=== PATIENT | female | born 1975 | race Caucasian/White ===

== ENCOUNTER 2020-06-08 11:23 | Inpatient (IN) | payer SELFPAY ==
[2020-06-08] VITALS (22 sets, daily range): BP systolic 116–153; BP diastolic 59–99; PULSE 84–116; RESP 12–42; TEMP 36.5–36.7; O2SAT 91–99; BMI 33.4; BMI 36.8
--- NOTE | 2020-06-08 12:43 | DI.US.S_ITS ---
PROCEDURE: US PELVIC COMPLETE INDICATIONS: suprapubic cramping pain, IUD remaining for 20 yrs TECHNIQUE: Real-time scanning was performed of the pelvic organs, with image documentation. Additional endovaginal scanning was necessary due to incomplete visualization of the adnexal and endometrial structures by transabdominal scanning. COMPARISON: None. FINDINGS: Transabdominal scanning: Limited scanning through the kidneys shows no hydronephrosis. No pathologic free abdominal or pelvic fluid. Endovaginal scanning: Uterus: Uterus is normal in size at 5.4 x 4.1 x 9.1 cm. The endometrium is not well visualized due to patient body habitus.. Note is made of a IUD within the right lower uterine segment. This may be penetrating the myometrial wall. Ovaries: Not visualized. A small amount of mildly complex free fluid is seen at the left adnexa. IMPRESSION: Anteverted uterus, normal in size, but quality of visualization of the endometrial lining is very limited due to body habitus. Lower uterine segment positioning of a partially visualized IUD which may partially penetrate the right myometrium. A small amount of mildly complex free fluid is seen within the right adnexa. The ovaries could not be seen bilaterally. Depending on the clinical status follow-up by pelvic MR scanning may be warranted for more thorough evaluation. Dictated by: Ezequiel Tuttle M.D. on 06/08/2020 at 15:29 Approved by: Ezequiel Tuttle M.D. on 06/08/2020 at 15:35
[2020-06-08] MEDS: SODIUM CHLORIDE 0.9% 1,000 ML 999 ML IV (13:03)
[2020-06-08] MEDS: KETOROLAC 60 MG/2 ML VIAL 15 MG IV (13:03)
[2020-06-08] MEDS: ONDANSETRON 4 MG/2 ML INJ IV (13:03)
[2020-06-08 13:06] LABS: Alanine Aminotransferase 52 IU/L (<35); Albumin 3.4 g/dL (3.5-5.0); Albumin Globulin Ratio 0.9 (1.0-2.8); Alkaline Phosphatase 163 U/L (38-126); Aspartate Aminotransferase 84 IU/L (14-36); BUN Creatinine Ratio 8.8 (6-22); Bilirubin Total 1.2 mg/dL (0.2-1.3); Blood Urea Nitrogen 3 mg/dL (7-17); Calcium 8.5 mg/dL (8.4-10.2); Chloride 90 mmol/L (98-107); Estimated Glomerular Filt Rate > 60.0 mL/min (>60); Globulin 3.7 g/dL (1.7-4.1); Glucose 104 mg/dL (70-100); HEMOLYSIS < 15 (0-50); Lactate (Lactic Acid) 2.8 mmol/L (0.7-2.1); Sodium 134 mmol/L (137-145); Total Protein 7.1 g/dL (6.3-8.2)
[2020-06-08 13:08] LABS: Add Manual Diff / Slide Review NO; Basophils Absolute Auto 100 /uL (0-100); Basophils Percent Auto 0.4 % (0-2); Eosinophils Absolute Auto 0 /uL (0-450); Eosinophils Percent Auto 0.1 % (2-4); Hematocrit 35.6 % (36-46); Hemoglobin 12.3 g/dL (12.0-16.0); Lymphocytes Absolute Auto 900 /uL (1100-4500); Lymphocytes Percent Auto 5.3 % (25-40); Mean Corpuscular HGB Conc 34.6 % (30-36); Mean Corpuscular Hemoglobin 35.9 PG (26-34); Mean Corpuscular Volume 103.5 fL (80-100); Monocytes Absolute Auto 900 /uL (0-900); Monocytes Percent Auto 5.2 % (3-14); Neutrophils Absolute Auto 15800 /uL (1500-7000); Platelet Count 242 X10^3/uL (150-400); Red Blood Cell Count 3.44 X10^6/uL (4.0-5.2); Red Cell Distribution Width 17.5 % (11.6-14.8); White Blood Cell Count 17.7 X10^3/uL (4.5-11.0)
[2020-06-08 13:12] LABS: Carbon Dioxide 38 mmol/L (22-32)
[2020-06-08 13:15] LABS: Appearance Urine UA CLOUDY; Bilirubin Urine UA 1+ (NEGATIVE); Color Urine UA ORANGE; Glucose Urine UA TRACE g/dL (Negative); Ketones Urine UA NEGATIVE (NEGATIVE); Leukocyte Esterase Urine UA 1+ (NEGATIVE); Nitrite Urine UA POSITIVE (Negative); Occult Blood Urine UA 3+ (Negative); Protein Urine UA 1+ (Negative)
[2020-06-08 13:18] LABS: pH Urine UA 7.5 (4.5-8.0)
[2020-06-08 13:20] LABS: Ictotest Urine Positive (Negative)
[2020-06-08 13:21] LABS: RBC Urine >100/HPF (0-5/HPF); Squamous Epithelial Cell Urine >30 /HPF (0-5/HPF); WBC Urine 30-100/HPF (0-5/HPF)
[2020-06-08 13:22] LABS: Bacteria Urine Many (>30); Culture Indicated Urine Cult Not Indicated
--- NOTE | 2020-06-08 13:26 | ED_ITS ---
HPI - Female Genitourinary <DEMETRIUS Bonner - Last Filed: 06/09/20 00:55> General Chief complaint: Urogenital-Female Stated complaint: pelvic pain/iud/9/10pain x4 days Time Seen by Provider: 06/08/20 12:08 Source: patient Mode of arrival: Ambulatory Limitations: no limitations History of Present Illness HPI Narrative: A 45 year female, smoker, with no contributory medical history pr esents to ED with significant other with chief complain of cramping suprapubic discomfort which radiates to back for last 4 days. LMP yesterday. Patient reports cramping pain is so severe can't move and has to stop to breathe through with the pain. Patient rates pain as 8/10 and in shooting and pressure like and worsens with certain movements and during urination and movements. Patient reports dark and odorous urine but denies frequency, urgency, dysuria, or hematuria. Patient reports she has history of constipation and denies diarrhea. Patient takes daily stool softener and laxatives. Patient reports she has IUD in place 20 years ago this has not been removed due to not having medical insurance. Patient reports last several months her period has been irregular. Patient denies unusual vaginal discharge. Patient reports associated symptoms as nausea and on and off vomiting last few days and reports decreased p.o. intake. Patient denies fever or chills, chest pain, short of breath, lightheadedness. Patient denies history of fibroids or ovarian cyst. Related Data Allergies Allergy/AdvReac Type Severity Reaction Status Date / Time No Known Drug Allergies Allergy Verified 06/08/20 11:39 Review of Systems <DEMETRIUS Bonner - Last Filed: 06/09/20 00:55> Review of Systems Narrative: General: Denies fever, chills, fatigue, malaise, sweats. HEENT: Denies sinus pain, ear pain, sore throat, difficulty swallowing, dizziness. Respiratory: Denies dyspnea, cough, wheezing, hemoptysis, sputum. Cardiovascular: Denies chest pain, palpitations, orthopnea, edema. Gastrointestinal: See HPI : See HP Musculoskeletal: Denies weakness, joint pain or bony pain, (+) back pain. Skin: Denies rash, skin lesions, or other. Neurologic: Denies weakness, headache, numbness, change in speech, confusion, seizures, incoordination. Psychiatric: No concerning psychosocial issues. 12-point review of systems is negative except for those stated above. Patient History <DEMETRIUS Bonner - Last Filed: 06/09/20 00:55> Medical History Constipation (Acute) Surgical History History of (Acute) Smoking Status: Current every day smoker alcohol intake frequency: 3 or more drinks per day Substance Use Type: marijuana Exam <DEMETRIUS Bonner - Last Filed: 06/09/20 00:55> Narrative Exam Narrative: GEN: Alert, oriented x 3, well nourished, and in no acute distress. Head: Normal cephalic, atraumatic. No scalp or temporal tenderness, palpable mass or rash. EYES: Pupils are equal, round, and reactive to light and accommodation. E xtraocular muscles are intact bilaterally. There is no subconjunctival hemorrhage, exudate and sclera non-icteric. ENT: Hearing grossly intact. Nose without bleeding, purulent discharge or deviation. Mucous membrane dry, no mucosal lesion. Throat without erythema, tonsillar hypertrophy or exudate. Uvula in midline, airway patent. Neck: Trachea in midline. No JVD, non-tender without lymphadenopathy. No masses or thyroid megaly. Supple, non-tender and no meningeal signs. CARDIAC: Normal regular rate and rhythm without murmurs, gallops, or rubs. No chest wall tenderness. No peripheral edema, cyanosis or pallor. Capillary refill is less than 2 seconds. RESPIRATORY: Lungs are clear to auscultate bilaterally. No cough, wheezes, rales, or rhonchi. No stridor, respiratory distress, increase work of breathing, or accessary muscle used. ABD: Abdomen soft and non-distended. Bilateral low abdomen and suprapubic discomfort to palpate. No guarding or rebound tenderness to palpate. Bowel sounds are normal in all 4 quadrants. There is no palpable masses or organomegaly. EXT: Full painless ROM of all extremities with no loss of sensation, strength, effusion or edema. SKIN: Warm, dry, normal color for patient. No erythema, lesions or rash over visible areas. BACK: Nontender without deformity or crepitance. No flank tenderness. NEUROLOGICAL: Alert and oriented to place, time and person. Sensation and motor function intact bilaterally. No facial droops, dysphasia. PSYCHIATRIC: Good judgement and reason, without hallucinations, abnormal affect or abnormal behaviors during the examination. Patient is not suicidal. Initial Vital Signs Initial Vital Signs: Vital Signs Temperature 98.0 F 06/08/20 11:35 Pulse Rate 116 H 06/08/20 11:35 Respiratory Rate 06/08/20 11:35 Blood Pressure 138/98 H 06/08/20 11:35 Pulse Oximetry 95 06/08/20 11:35 Speculum Exam - Vagina: normal appearance of the vagina, vaginal bleeding, no masses and nontender Speculum Exam - Cervix: other (No string visualized) Bimanual Exam- Vagina & Uterus: no cervical motion tenderness Bimanual Exam- Adnexa, other: tender on the left and mass fixed OB/External & Speculum: vaginal bleeding Other: MERT [facility]right sap specialist during pelvic exam. <Viv Morales DO - Last Filed: 06/09/20 07:57> Initial Vital Signs Initial Vital Signs: Vital Signs Temperature 98.0 F 06/08/20 11:35 Pulse Rate 116 H 06/08/20 11:35 Respiratory Rate 06/08/20 11:35 Blood Pressure 138/98 H 06/08/20 11:35 Pulse Oximetry 95 06/08/20 11:35 Scores <DEMETRIUS Bonner - Last Filed: 06/09/20 00:55> GCS Bao coma scale eye opening: Spontaneous [place] coma scale verbal response: Orientated Bao coma scale motor response: Obey commands Bao coma scale total score: 15 qSOFA Altered Mental Status (GCS <15): No Respiratory rate greater than/equal to 22: No Systolic blood pressure less than or equal to 100: No qSOFA Total: 0 0-1 Not High Risk 1-3 High risk Course <DEMETRIUS Bonner - Last Filed: 06/09/20 00:55> Orders Ordered: Gentamicin Sulfate (Garamycin Trough) 1 [place] [facility] [place] Stop: 06/09/20 09:01 Hydromorphone HCl (Dilaudid) 1 mg IV Q4HR PRN PRN Reason: Pain, Severe (7-10) Last Admin: 06/09/20 07:05 Dose: 1 mg Documented by: Admin: 06/09/20 02:15 Dose: 1 mg Documented by: Admin: 06/08/20 22:15 Dose: 1 mg Documented by: SUSAN Clindamycin Phosphate (Cleocin) 900 mg in 50 mls @ 50 mls/hr IV Q8H [facility] Last Admin: 06/09/20 02:47 Dose: 50 mls/hr Documented by: DWAYNE Sodium Chloride (Normal Saline 0.9%) 1,000 mls @ 100 mls/hr IV CONT [facility] Last Admin: 06/08/20 22:14 Dose: 100 mls/hr Documented by: SUSAN Gentamicin Sulfate 450 mg/ (Sodium Chloride) 111.25 mls @ 111.25 mls/hr IV Q24H [facility] Last Admin: 06/08/20 23:57 Dose: 111.25 mls/hr Documented by: DWAYNE Potassium Chloride 40 meq/ (Sodium Chloride) 520 mls @ 130 mls/hr IV NOW ONE Stop: 06/09/20 11:22 Ketorolac Tromethamine (Toradol) 30 mg IV Q6H PRN PRN Reason: Pain, Moderate (4-6) Last Admin: 06/08/20 22:14 Dose: 30 mg Documented by: SUSAN Naloxone HCl (Narcan) 0.2 mg IV Q2MIN PRN PRN Reason: Opiate Reversal Ondansetron HCl (Zofran) 4 mg IV Q6HR PRN PRN Reason: Nausea And Vomiting Oxycodone/Acetaminophen (Percocet 5/325) 2 tab PO Q4HR PRN PRN Reason: Pain, Severe (7-10) Discontinued Medications Docusate Sodium (Colace) 250 mg PO BID [facility] Last Admin: 06/08/20 22:17 Dose: 250 mg Documented by: SUSAN Gentamicin Sulfate (Garamycin Per Pharmacy) 1 request MISC NOW ONE Stop: 06/08/20 21:17 Last Admin: 06/09/20 03:25 Dose: Not Given Documented by: DWAYNE Gentamicin Sulfate (Garamycin Peak) 1 request MISC NOW ONE Stop: 06/08/20 22:46 Hydromorphone HCl (Dilaudid) 0.5 mg IV NOW ONE Stop: 06/08/20 14:03 Last Admin: 06/08/20 14:15 Dose: 0.5 mg Documented by: ELEANOR Hydromorphone HCl (Dilaudid) 0.5 mg IV NOW ONE Stop: 06/08/20 18:11 Last Admin: 06/08/20 18:26 Dose: 0.5 mg Documented by: ELEANOR Sodium Chloride (Normal Saline 0.9%) 1,000 mls @ 999 mls/hr IV CONT SHARONA Last Infusion: 06/08/20 14:23 Dose: 0 mls/hr Documented by: Admin: 06/08/20 13:03 Dose: 999 mls/hr Documented by: EELANOR Potassium Chloride 40 meq/ (Sodium Chloride) 520 mls @ 130 mls/hr IV NOW ONE Stop: 06/08/20 17:21 Last Infusion: 06/08/20 18:03 Dose: 0 mls/hr Documented by: ELEANOR Cosigned by: ROGELIO Admin: 06/08/20 13:37 Dose: 130 mls/hr Documented by: HARSH Cosigned by: ELEANOR Sodium Chloride (Normal Saline 0.9%) 1,000 mls @ 1,000 mls/hr IV BOLUS ONE Stop: 06/08/20 14:22 Last Infusion: 06/08/20 15:39 Dose: 0 mls/hr Documented by: Admin: 06/08/20 14:06 Dose: 1,000 mls/hr Documented by: ELEANOR Ceftriaxone Sodium/Dextrose (Rocephin) 1 gm in 50 mls @ 100 mls/hr IV NOW ONE Stop: 06/08/20 13:55 Last Infusion: 06/08/20 15:03 Dose: 0 mls/hr Documented by: Admin: 06/08/20 14:06 Dose: 100 mls/hr Documented by: ELEANOR Clindamycin Phosphate (Cleocin) 900 mg in 50 mls @ 50 mls/hr IV NOW ONE Stop: 06/08/20 18:42 Last Admin: 06/08/20 18:26 Dose: 50 mls/hr Documented by: ELEANOR Sodium Chloride (Normal Saline 0.9%) 1,000 mls @ 125 mls/hr IV CONT SHARONA Last Admin: 06/08/20 22:16 Dose: Not Given Documented by: SUSAN Potassium Chloride 40 meq/ (Sodium Chloride) 520 mls @ 130 mls/hr IV NOW ONE Stop: 06/08/20 22:32 Last Admin: 06/08/20 20:26 Dose: 130 mls/hr Documented by: ARIA Cosigned by: ROCIO Gentamicin Sulfate 220 mg/ (Sodium Chloride) 105.5 mls @ 105.5 mls/hr IV NOW ONE Stop: 06/08/20 21:17 Last Admin: 06/08/20 22:44 Dose: Not Given Documented by: ARIA Ketorolac Tromethamine (Toradol) 15 mg IV NOW ONE Stop: 06/08/20 12:43 Last Admin: 06/08/20 13:03 Dose: 15 mg Documented by: ELEANOR Ondansetron HCl (Zofran) 4 mg IV NOW ONE Stop: 06/08/20 12:43 Last Admin: 06/08/20 13:03 Dose: 4 mg Documented by: ELEANOR Potassium Chloride (Potassium Chloride) 40 meq PO NOW ONE Stop: 06/08/20 16:22 Last Admin: 06/08/20 16:57 Dose: 40 meq Documented by: ELEANOR Potassium Chloride (Potassium Chloride) 40 meq PO NOW ONE Stop: 06/09/20 07:25 Reevaluation(s) Reevaluation #1: Patient reports pain has not improved much after Toradol. Informed patient on blood test results and waiting for ultrasound test results. Ordering Dilaudid for pain. Time: 14:02 Reevaluation #2: Contacted US department for update and results on US pelvic exam. Informed that it is being read by RAD at this time. Time: 15:06 Reevaluation #3: Repeat Lactate 2.3. Improved HR at 88 bmp and normal tensive. Additional Reevaluation(s): 4412-Dr. Herring (RAD) called to inform CT findings on left adenexa abscess and IUD findings that was seen by US. Consultations Consultation #1: consulted Dr. Grey with US finding. She recommended pelvic exam and will try to remove IUD at the office and if this fails then the patient requires IUD removal at the OR. Dr. Grey does not recommend CT at this time. Will speak with Dr. Lazaro for admission for hypokalemia and SIRS with elevated lactate in 2 series with leukocytosis possibly from pylonephritis or intra- abdominal disease. Time: 16:01 Consultation #2: Dr. Santacruz recommended CT test of abdomen and pelvis with contrast, repeat clean-catch urine test and to call back with the results. Time: 16:20 Consultation #3: 1745-Dr. Lazaro informed with the CT result. He recommended consulting Dr. Grey ([facility]) for admission. Dr. Grey contacted with CT findings. She recommended for IV abx medication coverage with clindamycin 900 mg for possible left ovarian abscess. Found out there is no available inpatient bed at this time and discussed with Dr. Grey will contact other Hospitals for admission/transfer. Appreciate her time and consult. 1750-I was informed that there maybe a bed available in a short period and waiting a phone call from executive housekeeper. Repeat BMP and lactate at this time. 180-I was informed that there is a bed available in short. I will contact Dr. Grey once again with the information above and repeat lactate and BMP result. 1840-Dr. Grey kindly accepted patient's care for possible left ovarian abscess and mess, hypokalemia, UTI, and meeting sepsis criteria. Lactate has increased to 2.5 (#3) from 2.3 (#2) and K is upto now 2.8. Additional 40 mEq of K rider has been ordered. Vital Signs Vital signs: Vital Signs - 8 hr 06/08/20 16:46 06/08/20 16:47 06/08/20 17:00 Pulse Rate 93 H 90 Respiratory Rate 21 Blood Pressure 128/78 133/81 Pulse Oximetry 91 99 97 06/08/20 17:30 06/08/20 18:00 06/08/20 18:01 Pulse Rate 89 90 89 Respiratory Rate 17 22 19 Blood Pressure 141/99 H 127/76 Pulse Oximetry 97 96 96 06/08/20 18:30 06/08/20 18:31 Pulse Rate 88 89 Respiratory Rate 24 21 Blood Pressure 116/59 L Pulse Oximetry 94 95 <Viv Morales, DO - Last Filed: 06/09/20 07:57> Orders Ordered: Gentamicin Sulfate (Garamycin Trough) 1 [place] [facility] [place] Stop: 06/09/20 09:01 Hydromorphone HCl (Dilaudid) 1 mg IV Q4HR PRN PRN Reason: Pain, Severe (7-10) Last Admin: 06/09/20 07:05 Dose: 1 mg Documented by: Admin: 06/09/20 02:15 Dose: 1 mg Documented by: Admin: 06/08/20 22:15 Dose: 1 mg Documented by: SUSAN Clindamycin Phosphate (Cleocin) 900 mg in 50 mls @ 50 mls/hr IV Q8H [facility] Last Admin: 06/09/20 02:47 Dose: 50 mls/hr Documented by: DWAYNE Sodium Chloride (Normal Saline 0.9%) 1,000 mls @ 100 mls/hr IV CONT [facility] Last Admin: 06/08/20 22:14 Dose: 100 mls/hr Documented by: SUSAN Gentamicin Sulfate 450 mg/ (Sodium Chloride) 111.25 mls @ 111.25 mls/hr IV Q24H [facility] Last Admin: 06/08/20 23:57 Dose: 111.25 mls/hr Documented by: DWAYNE Potassium Chloride 40 meq/ (Sodium Chloride) 520 mls @ 130 mls/hr IV NOW ONE Stop: 06/09/20 11:22 Ketorolac Tromethamine (Toradol) 30 mg IV Q6H PRN PRN Reason: Pain, Moderate (4-6) Last Admin: 06/08/20 22:14 Dose: 30 mg Documented by: SUSAN Naloxone HCl (Narcan) 0.2 mg IV Q2MIN PRN PRN Reason: Opiate Reversal Ondansetron HCl (Zofran) 4 mg IV Q6HR PRN PRN Reason: Nausea And Vomiting Oxycodone/Acetaminophen (Percocet 5/325) 2 tab PO Q4HR PRN PRN Reason: Pain, Severe (7-10) Discontinued Medications Docusate Sodium (Colace) 250 mg PO BID [facility] Last Admin: 06/08/20 22:17 Dose: 250 mg Documented by: SUSAN Gentamicin Sulfate (Garamycin Per Pharmacy) 1 request MISC NOW ONE Stop: 06/08/20 21:17 Last Admin: 06/09/20 03:25 Dose: Not Given Documented by: DWAYNE Gentamicin Sulfate (Garamycin Peak) 1 request MISC NOW ONE Stop: 06/08/20 22:46 Hydromorphone HCl (Dilaudid) 0.5 mg IV NOW ONE Stop: 06/08/20 14:03 Last Admin: 06/08/20 14:15 Dose: 0.5 mg Documented by: ELEANOR Hydromorphone HCl (Dilaudid) 0.5 mg IV NOW ONE Stop: 06/08/20 18:11 Last Admin: 06/08/20 18:26 Dose: 0.5 mg Documented by: ELEANOR Sodium Chloride (Normal Saline 0.9%) 1,000 mls @ 999 mls/hr IV CONT SHARONA Last Infusion: 06/08/20 14:23 Dose: 0 mls/hr Documented by: Admin: 06/08/20 13:03 Dose: 999 mls/hr Documented by: ELEANOR Potassium Chloride 40 meq/ (Sodium Chloride) 520 mls @ 130 mls/hr IV NOW ONE Stop: 06/08/20 17:21 Last Infusion: 06/08/20 18:03 Dose: 0 mls/hr Documented by: ELEANOR Cosigned by: ROGELIO Admin: 06/08/20 13:37 Dose: 130 mls/hr Documented by: HARSH Cosigned by: ELEANOR Sodium Chloride (Normal Saline 0.9%) 1,000 mls @ 1,000 mls/hr IV BOLUS ONE Stop: 06/08/20 14:22 Last Infusion: 06/08/20 15:39 Dose: 0 mls/hr Documented by: Admin: 06/08/20 14:06 Dose: 1,000 mls/hr Documented by: ELEANOR Ceftriaxone Sodium/Dextrose (Rocephin) 1 gm in 50 mls @ 100 mls/hr IV NOW ONE Stop: 06/08/20 13:55 Last Infusion: 06/08/20 15:03 Dose: 0 mls/hr Documented by: Admin: 06/08/20 14:06 Dose: 100 mls/hr Documented by: ELEANOR Clindamycin Phosphate (Cleocin) 900 mg in 50 mls @ 50 mls/hr IV NOW ONE Stop: 06/08/20 18:42 Last Admin: 06/08/20 18:26 Dose: 50 mls/hr Documented by: ELEANOR Sodium Chloride (Normal Saline 0.9%) 1,000 mls @ 125 mls/hr IV CONT SHARONA Last Admin: 06/08/20 22:16 Dose: Not Given Documented by: SUSAN Potassium Chloride 40 meq/ (Sodium Chloride) 520 mls @ 130 mls/hr IV NOW ONE Stop: 06/08/20 22:32 Last Admin: 06/08/20 20:26 Dose: 130 mls/hr Documented by: ARIA Navarroigned by: ROCIO Gentamicin Sulfate 220 mg/ (Sodium Chloride) 105.5 mls @ 105.5 mls/hr IV NOW ONE Stop: 06/08/20 21:17 Last Admin: 06/08/20 22:44 Dose: Not Given Documented by: ARIA Ketorolac Tromethamine (Toradol) 15 mg IV NOW ONE Stop: 06/08/20 12:43 Last Admin: 06/08/20 13:03 Dose: 15 mg Documented by: ELEANOR Ondansetron HCl (Zofran) 4 mg IV NOW ONE Stop: 06/08/20 12:43 Last Admin: 06/08/20 13:03 Dose: 4 mg Documented by: ELEANOR Potassium Chloride (Potassium Chloride) 40 meq PO NOW ONE Stop: 06/08/20 16:22 Last Admin: 06/08/20 16:57 Dose: 40 meq Documented by: ELEANOR Potassium Chloride (Potassium Chloride) 40 meq PO NOW ONE Stop: 06/09/20 07:25 Vital Signs Vital signs: Vital Signs - 8 hr 06/08/20 16:46 06/08/20 16:47 06/08/20 17:00 Pulse Rate 93 H 90 Respiratory Rate 21 Blood Pressure 128/78 133/81 Pulse Oximetry 91 99 97 06/08/20 17:30 06/08/20 18:00 06/08/20 18:01 Pulse Rate 89 90 89 Respiratory Rate 17 22 19 Blood Pressure 141/99 H 127/76 Pulse Oximetry 97 96 96 06/08/20 18:30 06/08/20 18:31 Pulse Rate 88 89 Respiratory Rate 24 21 Blood Pressure 116/59 L Pulse Oximetry 94 95 MDM - Female Genitourinary <DEMETRIUS Bonner - Last Filed: 06/09/20 00:55> Differential Diagnosis Differential diagnosis: Likely urinary tract infection, ruptured ovarian cyst and other (Pyelonephritis, PID, urine fibroids) Medical Records Attestation: I reviewed the patient's medical records. Lab Data Attestation: I reviewed the patient's lab results. Result diagrams: 06/09/20 04:05 06/09/20 04:05 Labs: Lab Results 06/08/20 06/08/20 06/08/20 Range/Units 12:50 12:50 12:50 WBC 17.7 H (4.5-11.0) X10^3/uL RBC 3.44 L (4.0-5.2) X10^6/uL Hgb 12.3 (12.0-16.0) g/dL Hct 35.6 L (36-46) % MCV 103.5 H (80-100) fL MCH 35.9 H (26-34) PG MCHC 34.6 (30-36) % RDW 17.5 H (11.6-14.8) % Plt Count 242 (150-400) X10^3/uL Neut % (Auto) 89.0 H (50-75) % Lymph % (Auto) 5.3 L (25-40) % Potter % (Auto) 5.2 (3-14) % Eos % (Auto) 0.1 L (2-4) % Baso % (Auto) 0.4 (0-2) % Neut # (Auto) 85350 H (1170-2563) /uL Lymph # (Auto) 900 L (9659-6262) /uL Potter # (Auto) 900 (0-900) /uL Eos # (Auto) 0 (0-450) /uL Baso # (Auto) 100 (0-100) /uL Sodium 134 L (137-145) mmol/L Potassium 2.0 L* (3.4-5.1) mmol/L Chloride 90 L (98-107) mmol/L Carbon Dioxide 38 H (22-32) mmol/L BUN 3 L (7-17) mg/dL Creatinine 0.34 L (0.52-1.04) mg/dL Estimated GFR > 60.0 (>60) mL/min BUN/Creatinine Ratio 8.8 (6-22) Glucose 104 H (70-100) mg/dL Lactate 2.8 H (0.7-2.1) mmol/L Calcium 8.5 (8.4-10.2) mg/dL Magnesium (1.6-2.3) mg/dL Total Bilirubin 1.2 (0.2-1.3) mg/dL AST 84 H (14-36) IU/L ALT 52 H (<35) IU/L Alkaline Phosphatase 163 H (38-126) U/L Total Protein 7.1 (6.3-8.2) g/dL Albumin 3.4 L (3.5-5.0) g/dL Globulin 3.7 (1.7-4.1) g/dL Albumin/Globulin Ratio 0.9 L (1.0-2.8) Urine Color Urine Appearance Urine pH (4.5-8.0) Ur Specific [place] (1.000-1.035) Urine Protein (Negative) Urine Glucose (UA) (Negative) g/dL Urine Ketones (NEGATIVE) Urine Occult Blood (Negative) Urine Nitrate (Negative) Urine Bilirubin (NEGATIVE) Ur Bilirubin Confirm (Negative) Urine Urobilinogen (0.2) E.U./dL Ur Leukocyte Esterase (NEGATIVE) Urine RBC (0-5/HPF) Urine WBC (0-5/HPF) Ur Squamous Epith Cells (0-5/HPF) Amorphous Sediment Urine Bacteria (None) Urine Mucus (Negative) Ur Culture Indicated? Urine Test (Negative) COVID-19 PCR (Negative) 06/08/20 06/08/20 06/08/20 Range/Units 13:09 13:09 15:06 WBC (4.5-11.0) X10^3/uL RBC (4.0-5.2) X10^6/uL Hgb (12.0-16.0) g/dL Hct (36-46) % MCV (80-100) fL MCH (26-34) PG MCHC (30-36) % RDW (11.6-14.8) % Plt Count (150-400) X10^3/uL Neut % (Auto) (50-75) % Lymph % (Auto) (25-40) % Potter % (Auto) (3-14) % Eos % (Auto) (2-4) % Baso % (Auto) (0-2) % Neut # (Auto) (7192-7816) /uL Lymph # (Auto) (0630-8899) /uL Potter # (Auto) (0-900) /uL Eos # (Auto) (0-450) /uL Baso # (Auto) (0-100) /uL Sodium (137-145) mmol/L Potassium (3.4-5.1) mmol/L Chloride (98-107) mmol/L Carbon Dioxide (22-32) mmol/L BUN (7-17) mg/dL Creatinine (0.52-1.04) mg/dL Estimated GFR (>60) mL/min BUN/Creatinine Ratio (6-22) Glucose (70-100) mg/dL Lactate 2.3 H (0.7-2.1) mmol/L Calcium (8.4-10.2) mg/dL Magnesium (1.6-2.3) mg/dL Total Bilirubin (0.2-1.3) mg/dL AST (14-36) IU/L ALT (<35) IU/L Alkaline Phosphatase (38-126) U/L Total Protein (6.3-8.2) g/dL Albumin (3.5-5.0) g/dL Globulin (1.7-4.1) g/dL Albumin/Globulin Ratio (1.0-2.8) Urine Color [place] Urine Appearance Cloudy Urine pH 7.5 (4.5-8.0) Ur Specific [place] 1.010 (1.000-1.035) Urine Protein 1+ H (Negative) Urine Glucose (UA) Trace H (Negative) g/dL Urine Ketones Negative (NEGATIVE) Urine Occult Blood 3+ H (Negative) Urine Nitrate Positive H (Negative) Urine Bilirubin 1+ H (NEGATIVE) Ur Bilirubin Confirm Positive H (Negative) Urine Urobilinogen 4.0 H (0.2) E.U./dL Ur Leukocyte Esterase 1+ H (NEGATIVE) Urine RBC >100/hpf H (0-5/HPF) Urine WBC 30-100/hpf H (0-5/HPF) Ur Squamous Epith Cells >30 /hpf H (0-5/HPF) Amorphous Sediment Urine Bacteria Many (>30) H (None) Urine Mucus (Negative) Ur Culture Indicated? Cult not indicated Urine Test Negative (Negative) COVID-19 PCR (Negative) 06/08/20 06/08/20 06/08/20 Range/Units 17:27 18:00 18:00 WBC (4.5-11.0) X10^3/uL RBC (4.0-5.2) X10^6/uL Hgb (12.0-16.0) g/dL Hct (36-46) % MCV (80-100) fL MCH (26-34) PG MCHC (30-36) % RDW (11.6-14.8) % Plt Count (150-400) X10^3/uL Neut % (Auto) (50-75) % Lymph % (Auto) (25-40) % Potter % (Auto) (3-14) % Eos % (Auto) (2-4) % Baso % (Auto) (0-2) % Neut # (Auto) (4489-6150) /uL Lymph # (Auto) (8918-8528) /uL Potter # (Auto) (0-900) /uL Eos # (Auto) (0-450) /uL Baso # (Auto) (0-100) /uL Sodium 136 L (137-145) mmol/L Potassium 2.8 L (3.4-5.1) mmol/L Chloride 96 L (98-107) mmol/L Carbon Dioxide 38 H (22-32) mmol/L BUN 4 L (7-17) mg/dL Creatinine 0.35 L (0.52-1.04) mg/dL Estimated GFR > 60.0 (>60) mL/min BUN/Creatinine Ratio 11.4 (6-22) Glucose 102 H (70-100) mg/dL Lactate 2.5 H (0.7-2.1) mmol/L Calcium 7.5 L (8.4-10.2) mg/dL Magnesium (1.6-2.3) mg/dL Total Bilirubin (0.2-1.3) mg/dL AST (14-36) IU/L ALT (<35) IU/L Alkaline Phosphatase (38-126) U/L Total Protein (6.3-8.2) g/dL Albumin (3.5-5.0) g/dL Globulin (1.7-4.1) g/dL Albumin/Globulin Ratio (1.0-2.8) Urine Color Urine Appearance Urine pH (4.5-8.0) Ur Specific [place] (1.000-1.035) Urine Protein (Negative) Urine Glucose (UA) (Negative) g/dL Urine Ketones (NEGATIVE) Urine Occult Blood (Negative) Urine Nitrate (Negative) Urine Bilirubin (NEGATIVE) Ur Bilirubin Confirm (Negative) Urine Urobilinogen (0.2) E.U./dL Ur Leukocyte Esterase (NEGATIVE) Urine RBC 1-5/hpf D (0-5/HPF) Urine WBC 5-10/hpf H (0-5/HPF) Ur Squamous Epith Cells 1-5 /hpf D (0-5/HPF) Amorphous Sediment 1+ Urine Bacteria Occasional (0-1) D (None) Urine Mucus 1+ H (Negative) Ur Culture Indicated? Specimen cultured Urine Test (Negative) COVID-19 PCR (Negative) 06/08/20 06/08/20 Range/Units 18:00 18:30 WBC (4.5-11.0) X10^3/uL RBC (4.0-5.2) X10^6/uL Hgb (12.0-16.0) g/dL Hct (36-46) % MCV (80-100) fL MCH (26-34) PG MCHC (30-36) % RDW (11.6-14.8) % Plt Count (150-400) X10^3/uL Neut % (Auto) (50-75) % Lymph % (Auto) (25-40) % [place] % (Auto) (3-14) % Eos % (Auto) (2-4) % Baso % (Auto) (0-2) % Neut # (Auto) (1690-8782) /uL Lymph # (Auto) (9066-4382) /uL Potter # (Auto) (0-900) /uL Eos # (Auto) (0-450) /uL Baso # (Auto) (0-100) /uL Sodium (137-145) mmol/L Potassium (3.4-5.1) mmol/L Chloride (98-107) mmol/L Carbon Dioxide (22-32) mmol/L BUN (7-17) mg/dL Creatinine (0.52-1.04) mg/dL Estimated GFR (>60) mL/min BUN/Creatinine Ratio (6-22) Glucose (70-100) mg/dL Lactate (0.7-2.1) mmol/L Calcium (8.4-10.2) mg/dL Magnesium 1.6 (1.6-2.3) mg/dL Total Bilirubin (0.2-1.3) mg/dL AST (14-36) IU/L ALT (<35) IU/L Alkaline Phosphatase (38-126) U/L Total Protein (6.3-8.2) g/dL Albumin (3.5-5.0) g/dL Globulin (1.7-4.1) g/dL Albumin/Globulin Ratio (1.0-2.8) Urine Color Urine Appearance Urine pH (4.5-8.0) Ur Specific [place] (1.000-1.035) Urine Protein (Negative) Urine Glucose (UA) (Negative) g/dL Urine Ketones (NEGATIVE) Urine Occult Blood (Negative) Urine Nitrate (Negative) Urine Bilirubin (NEGATIVE) Ur Bilirubin Confirm (Negative) Urine Urobilinogen (0.2) E.U./dL Ur Leukocyte Esterase (NEGATIVE) Urine RBC (0-5/HPF) Urine WBC (0-5/HPF) Ur Squamous Epith Cells (0-5/HPF) Amorphous Sediment Urine Bacteria (None) Urine Mucus (Negative) Ur Culture Indicated? Urine Test (Negative) COVID-19 PCR Negative (Negative) Urine Dip Bedside Urine Glucose Negative Bedside Urine Bilirubin - Negative Bedside Urine Ketone - Negative Urine Specific [place] 1.010 Bedside Urine Occult Blood +++ Bedside Urine pH 8.0 Bedside Urine Protein +/- 15 Bedside Urine Urobilinogen 1+ 2mg Bedside Urine Nitrite + Positive Bedside Urine Leukocytes - Negative Esterase Imaging Data US - CLOTH TESTER: Radiologist's Impression: [address] [address] Ultrasound Report Signed Patient: Bridgette Nuno RMR#: [id number] : 1975Acct:[id number] Age/Sex: 45 / FDate of Service: 06/08/20 Loc: ED Accession Number: [id number] Procedure: US pelvic complete Ordering Provider: Luis Melara PROCEDURE: US PELVIC COMPLETE INDICATIONS: suprapubic cramping pain, IUD remaining for 20 yrs TECHNIQUE: Real-time scanning was performed of the pelvic organs, with image documentation. Additional endovaginal scanning was necessary due to incomplete visualization of the adnexal and endometrial structures by transabdominal scanning. COMPARISON: None. FINDINGS: Transabdominal scanning: Limited scanning through the kidneys shows no hydronephrosis. No pathologic free abdominal or pelvic fluid. Endovaginal scanning: Uterus: Uterus is normal in size at 5.4 x 4.1 x 9.1 cm. The endometrium is not well visualized due to patient body habitus.. Note is made of a IUD within the right lower uterine segment. This may be penetrating the myometrial wall. Ovaries: Not visualized. A small amount of mildly complex free fluid is seen at the left adnexa. IMPRESSION: Anteverted uterus, normal in size, but quality of visualization of the endometrial lining is very limited due to body habitus. Lower uterine segment positioning of a partially visualized IUD which may partially penetrate the right myometrium. A small amount of mildly complex free fluid is seen within the right adnexa. The ovaries could not be seen bilaterally. Depending on the clinical status follow-up by pelvic MR scanning may be warranted for more thorough evaluation. Dictated by: Ezequiel Tuttle M.D. on 06/08/2020 at 15:29 Approved by: Ezequiel Tuttle M.D. on 06/08/2020 at 15:35 CT-Abd/Pelvis: Radiologist's Impression: [place] [address] CT Scan Report Signed Patient: Bridgette Nuno RMR#: [id number] : 1975Acct:[id number] Age/Sex: 45 / FDate of Service: 06/08/20 Loc: ED Accession Number: [id number] Procedure: CT abdomen pelvis w con Ordering Provider: Luis Melara PROCEDURE: CT ABDOMEN PELVIS W CON INDICATIONS: low abd pain, elevated wbc, lactate TECHNIQUE: After the administration of intravenous contrast, 5 mm thick sections acquired from the diaphragm to the symphysis. 5 mm coronal and sagittal reformats were acquired. For radiation dose reduction, the following was used: automated exposure control, adjustment of mA and/or kV according to patient size. COMPARISON: [facility], , US PELVIC COMPLETE, 06/08/2020, 12:55. FINDINGS: Image quality: Excellent. ABDOMEN: Lung bases: Mild dependent atelectasis can be seen. Heart size is normal. Solid organs: Liver is normal in size and enhancement. Diffuse fatty liver infiltration is noted. Gallbladder wall is not thickened. Biliary system is non dilated. Pancreas enhances normally. Spleen is normal in size and enhancement. Incidental note is made of an accessory splenule along the anterior aspect of the primary spleen. No adrenal nodules. Kidneys demonstrate normal size and enhancement, without hydronephrosis. Peritoneum and bowel: Bowel loops demonstrate normal wall thickness and caliber. No free fluid or air. A normal appendix is incidentally noted. Nodes and vessels: No retroperitoneal or mesenteric adenopathy by size criteria. Aorta and inferior vena cava are normal in size. Miscellaneous: No ventral hernias. PELVIS: Genitourinary: Bladder wall thickness is normal. An IUD is seen. The IUD is located inferiorly and a portion of the right IUD protrudes through the myometrium. Within the left adnexal region, there is a multi loculated mass seen that measures 7.8 by 5 by 6.4 cm. There is mild free fluid seen within the pelvis. Miscellaneous: No inguinal hernias or adenopathy. Bones: No suspicious bony lesions. No vertebral body compression fractures. Age-appropriate bony degenerative changes are seen. IMPRESSION: There is a multi septated left adnexal mass seen, most likely related to an ovarian mass. Differential diagnosis includes an abscess, yet this is considered to be less likely. This lesion was not seen on the accompanying pelvic ultrasound. At the very least, please consider a follow-up pelvic ultrasound in 6 weeks to assure resolution/improvement. Abnormally placed IUD, which is low lying and penetrates through the myometrium on the right-side. Please correlate with known patient history. Gynecology consultation is recommended. Incidental note is made of: Fatty liver infiltration Note: Case discussed by telephone with DEMETRIUS Bonner at 3:50 p.m. [place] time on June 08, 2020. Dictated by: Duog Herring M.D. on 06/08/2020 at 15:44 Approved by: Doug Herring M.D. on 06/08/2020 at 15:52 MDM Narrative Medical decision making narrative: This is a 45 year female who presents to ED with chief complain of suprapubic and bilateral low abdominal pain with nausea and vomiting for last 4 days with decreased PO intake. Patient denies unusual vaginal discharge but her menstruation has been irregular and heavy year last several months. CBC with high leukocytosis of 17.7 with elevated neutrophils of 89%. Initial lactate of 2.8. Upon arrival, she had tachycardia of 116 and was afebrile of 98.0 F. Abnormal electrolytes of critically low in hypokalemia of 2.0, sodium of 134, hypochloridemia of 90, elevated CO2 of 38. Normal kidney function and slightly elevated AST 84, ALT 52, Alk phosphatase of 163. The patient has about 3 alcohol beverages daily. Patient has no epigastric or upper abdominal discomfort. Urine test indicated UTI with positve for urine nitrate, leukoesterase, occult blood with micro test was positive for 30-100/hpf of WBC, >100 hpf of RBC , many bacteria with epithelial cell. Patient reports had taken Kizzy yesterday and the urine was in orange color. Sepsis guideline started and started IVF infusion with NS 30ml/kg with ideal body weight of 63kg. Administered IV Recephin 1 Gm to cover UTI or possible pyelonephritis. Potassium replacement started with 40 meq of IV infusion and 40 meq of Kcl orally. The 2nd IV line established. Urine hcg is negative. US of pelvic obtained given the patient had IUD inplaced for 20 years to rule out perforation or infection. US test indicates 0 0 uterine size with IUD within right lower uterine segment may be penetrating into myometrial wall. There is a small amount of mildly complex free fluid seen within the right adnexa and the ovaries could not be seen bilaterally. Consulted Dr. Grey and Dr. Lazaro for physical, lab and imaging findings. CT of abdomen/pelvis ordered to study other intraabdominal etiology for elevated white count and lactate as Dr. Lazaro recommended. Repeat urine test done since the 1st urine sample appears to be contaminated sample since he shows high squamous epithelia cells. 2ND urine test still shows urine nitrite, negative leukoesterase, and occult blood. Micro urine test shows 5-10 hpf of WBC and occasional bacteria. Both urine cultures are pending. CT abdomen indicates the same IUD findings with left adnexal shows a multi loculated mass measures 7.8 x 5 x 6.4 cm with mild free fluid in the pelvis most likely related to an ovarian mass vs. abscess. Incidental finding of fatty liver infiltration. BMP and lactate were repeated. Improving K of 2.8, Na of 136 and Cl of 96. No changes in CO2. 2nd Lactate was 2.3 but again slightly elevating #3 lactate of 2.5. The patient is hemodynamically stable with improved heart rate. Patient continued to be afebrile. Patient was medicated with several doses of Dilaudid, Toradol and Zofran for pain and nausea management. Dr. Grey was consulted several times and she recommended antibiotic medication treatment with clindamycin and gentamicin. She kindly accepted the patient's care to follow up on elevated WBC, lactate, ovarian mass/abscess and partially perforated IUD into right side myometrium, UTI, hypokalemia, and sepsis. <Viv Morales, DO - Last Filed: 06/09/20 07:57> Lab Data Labs: Lab Results 06/08/20 06/08/20 06/08/20 Range/Units 12:50 12:50 12:50 WBC 17.7 H (4.5-11.0) X10^3/uL RBC 3.44 L (4.0-5.2) X10^6/uL Hgb 12.3 (12.0-16.0) g/dL Hct 35.6 L (36-46) % MCV 103.5 H (80-100) fL MCH 35.9 H (26-34) PG MCHC 34.6 (30-36) % RDW 17.5 H (11.6-14.8) % Plt Count 242 (150-400) X10^3/uL Neut % (Auto) 89.0 H (50-75) % Lymph % (Auto) 5.3 L (25-40) % Potter % (Auto) 5.2 (3-14) % Eos % (Auto) 0.1 L (2-4) % Baso % (Auto) 0.4 (0-2) % Neut # (Auto) 90511 H (6193-5424) /uL Lymph # (Auto) 900 L (0723-7667) /uL Potter # (Auto) 900 (0-900) /uL Eos # (Auto) 0 (0-450) /uL Baso # (Auto) 100 (0-100) /uL Sodium 134 L (137-145) mmol/L Potassium 2.0 L* (3.4-5.1) mmol/L Chloride 90 L (98-107) mmol/L Carbon Dioxide 38 H (22-32) mmol/L BUN 3 L (7-17) mg/dL Creatinine 0.34 L (0.52-1.04) mg/dL Estimated GFR > 60.0 (>60) mL/min BUN/Creatinine Ratio 8.8 (6-22) Glucose 104 H (70-100) mg/dL Lactate 2.8 H (0.7-2.1) mmol/L Calcium 8.5 (8.4-10.2) mg/dL Magnesium (1.6-2.3) mg/dL Total Bilirubin 1.2 (0.2-1.3) mg/dL AST 84 H (14-36) IU/L ALT 52 H (<35) IU/L Alkaline Phosphatase 163 H (38-126) U/L Total Protein 7.1 (6.3-8.2) g/dL Albumin 3.4 L (3.5-5.0) g/dL Globulin 3.7 (1.7-4.1) g/dL Albumin/Globulin Ratio 0.9 L (1.0-2.8) Urine Color Urine Appearance Urine pH (4.5-8.0) Ur Specific [place] (1.000-1.035) Urine Protein (Negative) Urine Glucose (UA) (Negative) g/dL Urine Ketones (NEGATIVE) Urine Occult Blood (Negative) Urine Nitrate (Negative) Urine Bilirubin (NEGATIVE) Ur Bilirubin Confirm (Negative) Urine Urobilinogen (0.2) E.U./dL Ur Leukocyte Esterase (NEGATIVE) Urine RBC (0-5/HPF) Urine WBC (0-5/HPF) Ur Squamous Epith Cells (0-5/HPF) Amorphous Sediment Urine Bacteria (None) Urine Mucus (Negative) Ur Culture Indicated? Urine Test (Negative) COVID-19 PCR (Negative) 06/08/20 06/08/20 06/08/20 Range/Units 13:09 13:09 15:06 WBC (4.5-11.0) X10^3/uL RBC (4.0-5.2) X10^6/uL Hgb (12.0-16.0) g/dL Hct (36-46) % MCV (80-100) fL MCH (26-34) PG MCHC (30-36) % RDW (11.6-14.8) % Plt Count (150-400) X10^3/uL Neut % (Auto) (50-75) % Lymph % (Auto) (25-40) % Potter % (Auto) (3-14) % Eos % (Auto) (2-4) % Baso % (Auto) (0-2) % Neut # (Auto) (6702-1504) /uL Lymph # (Auto) (5185-5949) /uL Potter # (Auto) (0-900) /uL Eos # (Auto) (0-450) /uL Baso # (Auto) (0-100) /uL Sodium (137-145) mmol/L Potassium (3.4-5.1) mmol/L Chloride (98-107) mmol/L Carbon Dioxide (22-32) mmol/L BUN (7-17) mg/dL Creatinine (0.52-1.04) mg/dL Estimated GFR (>60) mL/min BUN/Creatinine Ratio (6-22) Glucose (70-100) mg/dL Lactate 2.3 H (0.7-2.1) mmol/L Calcium (8.4-10.2) mg/dL Magnesium (1.6-2.3) mg/dL Total Bilirubin (0.2-1.3) mg/dL AST (14-36) IU/L ALT (<35) IU/L Alkaline Phosphatase (38-126) U/L Total Protein (6.3-8.2) g/dL Albumin (3.5-5.0) g/dL Globulin (1.7-4.1) g/dL Albumin/Globulin Ratio (1.0-2.8) Urine Color [place] Urine Appearance Cloudy Urine pH 7.5 (4.5-8.0) Ur Specific [place] 1.010 (1.000-1.035) Urine Protein 1+ H (Negative) Urine Glucose (UA) Trace H (Negative) g/dL Urine Ketones Negative (NEGATIVE) Urine Occult Blood 3+ H (Negative) Urine Nitrate Positive H (Negative) Urine Bilirubin 1+ H (NEGATIVE) Ur Bilirubin Confirm Positive H (Negative) Urine Urobilinogen 4.0 H (0.2) E.U./dL Ur Leukocyte Esterase 1+ H (NEGATIVE) Urine RBC >100/hpf H (0-5/HPF) Urine WBC 30-100/hpf H (0-5/HPF) Ur Squamous Epith Cells >30 /hpf H (0-5/HPF) Amorphous Sediment Urine Bacteria Many (>30) H (None) Urine Mucus (Negative) Ur Culture Indicated? Cult not indicated Urine Test Negative (Negative) COVID-19 PCR (Negative) 06/08/20 06/08/20 06/08/20 Range/Units 17:27 18:00 18:00 WBC (4.5-11.0) X10^3/uL RBC (4.0-5.2) X10^6/uL Hgb (12.0-16.0) g/dL Hct (36-46) % MCV (80-100) fL MCH (26-34) PG MCHC (30-36) % RDW (11.6-14.8) % Plt Count (150-400) X10^3/uL Neut % (Auto) (50-75) % Lymph % (Auto) (25-40) % Potter % (Auto) (3-14) % Eos % (Auto) (2-4) % Baso % (Auto) (0-2) % Neut # (Auto) (3621-8294) /uL Lymph # (Auto) (3161-5003) /uL Potter # (Auto) (0-900) /uL Eos # (Auto) (0-450) /uL Baso # (Auto) (0-100) /uL Sodium 136 L (137-145) mmol/L Potassium 2.8 L (3.4-5.1) mmol/L Chloride 96 L (98-107) mmol/L Carbon Dioxide 38 H (22-32) mmol/L BUN 4 L (7-17) mg/dL Creatinine 0.35 L (0.52-1.04) mg/dL Estimated GFR > 60.0 (>60) mL/min BUN/Creatinine Ratio 11.4 (6-22) Glucose 102 H (70-100) mg/dL Lactate 2.5 H (0.7-2.1) mmol/L Calcium 7.5 L (8.4-10.2) mg/dL Magnesium (1.6-2.3) mg/dL Total Bilirubin (0.2-1.3) mg/dL AST (14-36) IU/L ALT (<35) IU/L Alkaline Phosphatase (38-126) U/L Total Protein (6.3-8.2) g/dL Albumin (3.5-5.0) g/dL Globulin (1.7-4.1) g/dL Albumin/Globulin Ratio (1.0-2.8) Urine Color Urine Appearance Urine pH (4.5-8.0) Ur Specific [place] (1.000-1.035) Urine Protein (Negative) Urine Glucose (UA) (Negative) g/dL Urine Ketones (NEGATIVE) Urine Occult Blood (Negative) Urine Nitrate (Negative) Urine Bilirubin (NEGATIVE) Ur Bilirubin Confirm (Negative) Urine Urobilinogen (0.2) E.U./dL Ur Leukocyte Esterase (NEGATIVE) Urine RBC 1-5/hpf D (0-5/HPF) Urine WBC 5-10/hpf H (0-5/HPF) Ur Squamous Epith Cells 1-5 /hpf D (0-5/HPF) Amorphous Sediment 1+ Urine Bacteria Occasional (0-1) D (None) Urine Mucus 1+ H (Negative) Ur Culture Indicated? Specimen cultured Urine Test (Negative) COVID-19 PCR (Negative) 06/08/20 06/08/20 Range/Units 18:00 18:30 WBC (4.5-11.0) X10^3/uL RBC (4.0-5.2) X10^6/uL Hgb (12.0-16.0) g/dL Hct (36-46) % MCV (80-100) fL MCH (26-34) PG MCHC (30-36) % RDW (11.6-14.8) % Plt Count (150-400) X10^3/uL Neut % (Auto) (50-75) % Lymph % (Auto) (25-40) % Potter % (Auto) (3-14) % Eos % (Auto) (2-4) % Baso % (Auto) (0-2) % Neut # (Auto) (3894-0498) /uL Lymph # (Auto) (2888-3988) /uL Potter # (Auto) (0-900) /uL Eos # (Auto) (0-450) /uL Baso # (Auto) (0-100) /uL Sodium (137-145) mmol/L Potassium (3.4-5.1) mmol/L Chloride (98-107) mmol/L Carbon Dioxide (22-32) mmol/L BUN (7-17) mg/dL Creatinine (0.52-1.04) mg/dL Estimated GFR (>60) mL/min BUN/Creatinine Ratio (6-22) Glucose (70-100) mg/dL Lactate (0.7-2.1) mmol/L Calcium (8.4-10.2) mg/dL Magnesium 1.6 (1.6-2.3) mg/dL Total Bilirubin (0.2-1.3) mg/dL AST (14-36) IU/L ALT (<35) IU/L Alkaline Phosphatase (38-126) U/L Total Protein (6.3-8.2) g/dL Albumin (3.5-5.0) g/dL Globulin (1.7-4.1) g/dL Albumin/Globulin Ratio (1.0-2.8) Urine Color Urine Appearance Urine pH (4.5-8.0) Ur Specific [place] (1.000-1.035) Urine Protein (Negative) Urine Glucose (UA) (Negative) g/dL Urine Ketones (NEGATIVE) Urine Occult Blood (Negative) Urine Nitrate (Negative) Urine Bilirubin (NEGATIVE) Ur Bilirubin Confirm (Negative) Urine Urobilinogen (0.2) E.U./dL Ur Leukocyte Esterase (NEGATIVE) Urine RBC (0-5/HPF) Urine WBC (0-5/HPF) Ur Squamous Epith Cells (0-5/HPF) Amorphous Sediment Urine Bacteria (None) Urine Mucus (Negative) Ur Culture Indicated? Urine Test (Negative) COVID-19 PCR Negative (Negative) Urine Dip Bedside Urine Glucose Negative Bedside Urine Bilirubin - Negative Bedside Urine Ketone - Negative Urine Specific [place] 1.010 Bedside Urine Occult Blood +++ Bedside Urine pH 8.0 Bedside Urine Protein +/- 15 Bedside Urine Urobilinogen 1+ 2mg Bedside Urine Nitrite + Positive Bedside Urine Leukocytes - Negative Esterase Discharge Plan Departure Patient Disposition: Admitted As Inpatient Clinical Impression: Abscess of ovary UTI (urinary tract infection) Qualifiers: Urinary tract infection type: site unspecified Hematuria presence: with hematuria Qualified Code(s): N39.0 - Urinary tract infection, site not specified Sepsis Qualifiers: Sepsis type: sepsis due to unspecified organism Sepsis acute organ dysfunction status: without acute organ dysfunction Qualified Code(s): A41.9 - Sepsis, unspecified organism Discharge Date/Time: 06/08/20 19:02 Admit Date/Time: 06/08/20 18:52 Admit Provider: Sheila Grey <Viv Morales DO - Last Filed: 06/09/20 07:57> Cosign ED Attending Cosignature Attestation: I was immediately available in the department for consultation. This documentation has been reviewed and I agree with assessment and plan, patient care was discussed throughout emergency room stay along with recommendations from [employer] and internal medicine. Supervised by Viv Morales DO
[2020-06-08] MEDS: POTASSIUM CHLORIDE 40 MEQ in SODIUM CHLORIDE 0.9% 500 ML 130 ML IV ×2 (13:37→20:26)
[2020-06-08 14:06] LABS: Pregnancy Test Urine Negative (Negative)
[2020-06-08] MEDS: CEFTRIAXONE 1 GM/50 ML FROZ.PIGGY IV (14:06)
[2020-06-08] MEDS: SODIUM CHLORIDE 0.9% 1,000 ML 1000 ML IV (14:06)
[2020-06-08] MEDS: HYDROMORPHONE 0.5 MG INJ IV ×2 (14:15→18:26)
[2020-06-08 14:51] LABS: Reflexed Lactate in 2 Hours Y
[2020-06-08 15:26] LABS: Lactate 2HR (Lactic Acid Rflx) 2.3 mmol/L (0.7-2.1)
--- NOTE | 2020-06-08 16:21 | DI.CT.S_ITS ---
PROCEDURE: CT ABDOMEN PELVIS W CON INDICATIONS: low abd pain, elevated wbc, lactate TECHNIQUE: After the administration of intravenous contrast, 5 mm thick sections acquired from the diaphragm to the symphysis. 5 mm coronal and sagittal reformats were acquired. For radiation dose reduction, the following was used: automated exposure control, adjustment of mA and/or kV according to patient size. COMPARISON: [facility], US, US PELVIC COMPLETE, 06/08/2020, 12:55. FINDINGS: Image quality: Excellent. ABDOMEN: Lung bases: Mild dependent atelectasis can be seen. Heart size is normal. Solid organs: Liver is normal in size and enhancement. Diffuse fatty liver infiltration is noted. Gallbladder wall is not thickened. Biliary system is non dilated. Pancreas enhances normally. Spleen is normal in size and enhancement. Incidental note is made of an accessory splenule along the anterior aspect of the primary spleen. No adrenal nodules. Kidneys demonstrate normal size and enhancement, without hydronephrosis. Peritoneum and bowel: Bowel loops demonstrate normal wall thickness and caliber. No free fluid or air. A normal appendix is incidentally noted. Nodes and vessels: No retroperitoneal or mesenteric adenopathy by size criteria. Aorta and inferior vena cava are normal in size. Miscellaneous: No ventral hernias. PELVIS: Genitourinary: Bladder wall thickness is normal. An IUD is seen. The IUD is located inferiorly and a portion of the right IUD protrudes through the myometrium. Within the left adnexal region, there is a multi loculated mass seen that measures 7.8 by 5 by 6.4 cm. There is mild free fluid seen within the pelvis. Miscellaneous: No inguinal hernias or adenopathy. Bones: No suspicious bony lesions. No vertebral body compression fractures. Age-appropriate bony degenerative changes are seen. IMPRESSION: There is a multi septated left adnexal mass seen, most likely related to an ovarian mass. Differential diagnosis includes an abscess, yet this is considered to be less likely. This lesion was not seen on the accompanying pelvic ultrasound. At the very least, please consider a follow-up pelvic ultrasound in 6 weeks to assure resolution/improvement. Abnormally placed IUD, which is low lying and penetrates through the myometrium on the right-side. Please correlate with known patient history. Gynecology consultation is recommended. Incidental note is made of: Fatty liver infiltration Note: Case discussed by telephone with DEMETRIUS Bonner at 3:50 p.m. [place] time on June 08, 2020. Dictated by: Doug Herring M.D. on 06/08/2020 at 15:44 Approved by: Doug Herring M.D. on 06/08/2020 at 15:52
[2020-06-08] MEDS: POTASSIUM CHLORIDE 20 MEQ/15 ML UDC 40 MEQ PO (16:57)
[2020-06-08 17:44] LABS: Amorphous Sediment Urine 1+; Bacteria Urine Occasional (0-1); Culture Indicated Urine Specimen Cultured; Mucus Urine 1+ (Negative); RBC Urine 1-5/HPF (0-5/HPF); Squamous Epithelial Cell Urine 1-5 /HPF (0-5/HPF); WBC Urine 5-10/HPF (0-5/HPF)
[2020-06-08 18:18] LABS: BUN Creatinine Ratio 11.4 (6-22); Blood Urea Nitrogen 4 mg/dL (7-17); Calcium 7.5 mg/dL (8.4-10.2); Carbon Dioxide 38 mmol/L (22-32); Chloride 96 mmol/L (98-107); Estimated Glomerular Filt Rate > 60.0 mL/min (>60); Glucose 102 mg/dL (70-100); HEMOLYSIS 17 (0-50); Lactate (Lactic Acid) 2.5 mmol/L (0.7-2.1); Potassium 2.8 mmol/L (3.4-5.1); Sodium 136 mmol/L (137-145)
[2020-06-08] MEDS: CLINDAMYCIN 900 MG/50 ML PIGGYBACK 50 MG IV (18:26)
[2020-06-08 18:36] LABS: Magnesium 1.6 mg/dL (1.6-2.3)
[2020-06-08 18:58] LABS: COVID19 -Nasal RAPID Negative (Negative)
[2020-06-08 20:04] LABS: Reflexed Lactate in 2 Hours Y
[2020-06-08 20:43] LABS: Lactate 2HR (Lactic Acid Rflx) 2.1 mmol/L (0.7-2.1)
--- NOTE | 2020-06-08 20:43 | PC.NURSE ---
may dc tele. pt drink 3 or more/day, no need for ciwa or seizure prec per Dr. segura.
--- NOTE | 2020-06-08 20:56 | PM.GYNHP.1 ---
History of Present Illness History of Present Illness Reason for admission: pelvic mass (Possible left tubo-ovarian abscess) Narrative: Bridgette Nuno is a 45 year old female admitted for left lower quadrant pain, left adnexal multiloculated mass, elevated white count, UTI. [facility] [place] Medical History Constipation (Acute) Surgical History History of (Acute) Social History household members: significant other Smoking Status: Current every day smoker alcohol intake: current Meds Home Medications and Allergies Allergies Allergy/AdvReac Type Severity Reaction Status Date / Time No Known Drug Allergies Allergy Verified 06/08/20 11:39 Review of Systems Review of Systems Narrative: Patient with nausea , some emesis, lack of appetite due to pain. Patient with suprapubic and left lower quadrant pain. Initially was intermittent crampy but now it is constant crampy. Patient denies any blood in her stool or dark tarry stools. She does a history of constipation. Patient did start her menses on 06/07/2020. She has been having increasingly irregular menses especially last 4 months. She has been having increasingly heavy menses over the past 2 years. Patient denies any unusual vaginal discharge. ROS: Yes All systems reviewed with the patient and are negative except as otherwise documented Exam Vital Signs (past 8 hours): - 06/08/20 13:00 06/08/20 13:30 06/08/20 13:51 Temperature Pulse Rate 92 H 92 H 88 Respiratory Rate 21 Blood Pressure 120/75 120/75 Pulse Oximetry 95 95 06/08/20 14:00 06/08/20 14:30 06/08/20 14:41 Temperature Pulse Rate 86 90 88 Respiratory Rate 12 17 20 Blood Pressure 119/71 Pulse Oximetry 96 96 94 06/08/20 15:00 06/08/20 15:30 06/08/20 16:00 Temperature Pulse Rate 87 85 84 Respiratory Rate 14 21 23 Blood Pressure 124/78 124/77 125/75 Pulse Oximetry 95 93 95 06/08/20 16:46 06/08/20 16:47 06/08/20 17:00 Temperature Pulse Rate 93 H 90 Respiratory Rate 21 Blood Pressure 128/78 133/81 Pulse Oximetry 91 99 97 06/08/20 17:30 06/08/20 18:00 06/08/20 18:01 Temperature Pulse Rate 89 90 89 Respiratory Rate 17 22 19 Blood Pressure 141/99 H 127/76 Pulse Oximetry 97 96 96 06/08/20 18:30 06/08/20 18:31 06/08/20 19:00 Temperature Pulse Rate 88 89 87 Respiratory Rate 24 21 21 Blood Pressure 116/59 L Pulse Oximetry 94 95 99 06/08/20 19:01 06/08/20 19:10 Temperature 97.7 F Pulse Rate 93 H 85 Respiratory Rate 42 H 18 Blood Pressure 153/84 H 131/76 Pulse Oximetry 99 98 Oxygen Delivery Method Room Air Narrative Exam Narrative: Patient has poor dentition. Lungs are clear to auscultation percussion. No thyromegaly. Heart is regular rate and rhythm no S3-S4 or murmurs. Abdomen is soft with tenderness in the left lower quadrant but no rebound. Pelvic exam was not repeated but patient states that was extremely uncomfortable to have the vaginal ultrasound and exam. Extremities without edema and nontender. Objective Imaging CT scan - pelvis: Radiologist's impression: There is a multi septated left adnexal mass seen, most likely related to an ovarian mass. Differential diagnosis includes an abscess, yet this is considered to be less likely. This lesion was not seen on the accompanying pelvic ultrasound. At the very least, please consider a follow-up pelvic ultrasound in 6 weeks to assure resolution/improvement. Abnormally placed IUD, which is low lying and penetrates through the myometrium on the right-side. Please correlate with known patient history. US - abdomen: Radiologist's impression: IMPRESSION: Anteverted uterus, normal in size, but quality of visualization of the endometrial lining is very limited due to body habitus. Lower uterine segment positioning of a partially visualized IUD which may partially penetrate the right myometrium. A small amount of mildly complex free fluid is seen within the right adnexa. The ovaries could not be seen bilaterally. Labs Result Diagrams: 06/08/20 12:50 06/08/20 18:00 Labs: Laboratory Results - last 24 hr 06/08/20 06/08/20 06/08/20 12:50 12:50 12:50 WBC 17.7 H RBC 3.44 L Hgb 12.3 Hct 35.6 L MCV 103.5 H MCH 35.9 H MCHC 34.6 RDW 17.5 H Plt Count 242 Neut % (Auto) 89.0 H Lymph % (Auto) 5.3 L [place] % (Auto) 5.2 Eos % (Auto) 0.1 L Baso % (Auto) 0.4 Neut # (Auto) 65947 H Lymph # (Auto) 900 L [place] # (Auto) 900 Eos # (Auto) 0 Baso # (Auto) 100 Sodium 134 L Potassium 2.0 L* Chloride 90 L Carbon Dioxide 38 H BUN 3 L Creatinine 0.34 L Estimated GFR > 60.0 BUN/Creatinine Ratio 8.8 Glucose 104 H Lactate 2.8 H Calcium 8.5 Magnesium Total Bilirubin 1.2 AST 84 H ALT 52 H Alkaline Phosphatase 163 H Total Protein 7.1 Albumin 3.4 L Globulin 3.7 Albumin/Globulin Ratio 0.9 L Urine Color Urine Appearance Urine pH Ur Specific [place] Urine Protein Urine Glucose (UA) Urine Ketones Urine Occult Blood Urine Nitrate Urine Bilirubin Ur Bilirubin Confirm Urine Urobilinogen Ur Leukocyte Esterase Urine RBC Urine WBC Ur Squamous Epith Cells Amorphous Sediment Urine Bacteria Urine Mucus Ur Culture Indicated? Urine Test COVID-19 PCR 06/08/20 06/08/20 06/08/20 13:09 13:09 15:06 WBC RBC Hgb Hct MCV MCH MCHC RDW Plt Count Neut % (Auto) Lymph % (Auto) [place] % (Auto) Eos % (Auto) Baso % (Auto) Neut # (Auto) Lymph # (Auto) [place] # (Auto) Eos # (Auto) Baso # (Auto) Sodium Potassium Chloride Carbon Dioxide BUN Creatinine Estimated GFR BUN/Creatinine Ratio Glucose Lactate 2.3 H Calcium Magnesium Total Bilirubin AST ALT Alkaline Phosphatase Total Protein Albumin Globulin Albumin/Globulin Ratio Urine Color [place] Urine Appearance Cloudy Urine pH 7.5 Ur Specific [place] 1.010 Urine Protein 1+ H Urine Glucose (UA) Trace H Urine Ketones Negative Urine Occult Blood 3+ H Urine Nitrate Positive H Urine Bilirubin 1+ H Ur Bilirubin Confirm Positive H Urine Urobilinogen 4.0 H Ur Leukocyte Esterase 1+ H Urine RBC >100/hpf H Urine WBC 30-100/hpf H Ur Squamous Epith Cells >30 /hpf H Amorphous Sediment Urine Bacteria Many (>30) H Urine Mucus Ur Culture Indicated? Cult not indicated Urine Test Negative COVID-19 PCR 06/08/20 06/08/20 06/08/20 17:27 18:00 18:00 WBC RBC Hgb Hct MCV MCH MCHC RDW Plt Count Neut % (Auto) Lymph % (Auto) [place] % (Auto) Eos % (Auto) Baso % (Auto) Neut # (Auto) Lymph # (Auto) [place] # (Auto) Eos # (Auto) Baso # (Auto) Sodium 136 L Potassium 2.8 L Chloride 96 L Carbon Dioxide 38 H BUN 4 L Creatinine 0.35 L Estimated GFR > 60.0 BUN/Creatinine Ratio 11.4 Glucose 102 H Lactate 2.5 H Calcium 7.5 L Magnesium Total Bilirubin AST ALT Alkaline Phosphatase Total Protein Albumin Globulin Albumin/Globulin Ratio Urine Color Urine Appearance Urine pH Ur Specific [place] Urine Protein Urine Glucose (UA) Urine Ketones Urine Occult Blood Urine Nitrate Urine Bilirubin Ur Bilirubin Confirm Urine Urobilinogen Ur Leukocyte Esterase Urine RBC 1-5/hpf D Urine WBC 5-10/hpf H Ur Squamous Epith Cells 1-5 /hpf D Amorphous Sediment 1+ Urine Bacteria Occasional (0-1) D Urine Mucus 1+ H Ur Culture Indicated? Specimen cultured Urine Test COVID-19 PCR 06/08/20 06/08/20 06/08/20 18:00 18:30 20:20 WBC RBC Hgb Hct MCV MCH MCHC RDW Plt Count Neut % (Auto) Lymph % (Auto) [place] % (Auto) Eos % (Auto) Baso % (Auto) Neut # (Auto) Lymph # (Auto) [place] # (Auto) Eos # (Auto) Baso # (Auto) Sodium Potassium Chloride Carbon Dioxide BUN Creatinine Estimated GFR BUN/Creatinine Ratio Glucose Lactate 2.1 Calcium Magnesium 1.6 Total Bilirubin AST ALT Alkaline Phosphatase Total Protein Albumin Globulin Albumin/Globulin Ratio Urine Color Urine Appearance Urine pH Ur Specific [place] Urine Protein Urine Glucose (UA) Urine Ketones Urine Occult Blood Urine Nitrate Urine Bilirubin Ur Bilirubin Confirm Urine Urobilinogen Ur Leukocyte Esterase Urine RBC Urine WBC Ur Squamous Epith Cells Amorphous Sediment Urine Bacteria Urine Mucus Ur Culture Indicated? Urine Test COVID-19 PCR Negative Assessment & Plan Assessment & Plan narrative: 1. Patient admitted with elevated white count, left lower quadrant pain, 7.8 x 5 x 6.4 cm multiloculated mass in the left adnexal area with IUD in the uterus but possible perforating into the myometrium on the right side. Patient will be treated for possible tubo-ovarian abscess with IV antibiotics including gentamicin and clindamycin. Patient did receive Rocephin. If the patient does not have improvement with antibiotics will consider laparoscopy. At that time the IUD will be removed. Patient is interested in possible tubal ligation. 2. Patient with possible UTI. Antibiotic choice will also includes coverage for possible UTI. 3. Significantly low potassium and is getting replacement. 4. Patient is a cigarette smoker but declines a nicotine patch. 5. Patient who consumes 3 alcoholic beverages a day will be monitored for evidence of withdrawal. COVID-19 COVID-19 status: Negative Result date/Date tested (Pos, Neg/Pending): 06/08/20
[2020-06-08] MEDS: SODIUM CHLORIDE 0.9% 1,000 ML 100 ML IV (22:14)
[2020-06-08] MEDS: KETOROLAC 30 MG/ML VIAL IV (22:14)
[2020-06-08] MEDS: HYDROMORPHONE 1 MG INJ IV (22:15)
[2020-06-08] MEDS: DOCUSATE 250 MG CAPSULE PO (22:17)
[2020-06-08] MEDS: GENTAMICIN 450 MG in SODIUM CHLORIDE 0.9% 100 ML 111.25 ML IV (23:57)
[2020-06-09] VITALS (7 sets, daily range): BP systolic 115–140; BP diastolic 75–98; PULSE 72–83; RESP 15–20; TEMP 36–37.2; O2SAT 96–98
[2020-06-09] MEDS: HYDROMORPHONE 1 MG INJ IV ×4 (02:15→20:31)
[2020-06-09] MEDS: CLINDAMYCIN 900 MG/50 ML PIGGYBACK 50 MG IV ×3 (02:47→19:19)
[2020-06-09 04:32] LABS: Add Manual Diff / Slide Review NO; Basophils Absolute Auto 0 /uL (0-100); Basophils Percent Auto 0.3 % (0-2); Eosinophils Absolute Auto 100 /uL (0-450); Eosinophils Percent Auto 0.4 % (2-4); Hematocrit 31.5 % (36-46); Hemoglobin 10.7 g/dL (12.0-16.0); Lymphocytes Absolute Auto 1400 /uL (1100-4500); Mean Corpuscular HGB Conc 33.8 % (30-36); Mean Corpuscular Hemoglobin 35.3 PG (26-34); Mean Corpuscular Volume 104.4 fL (80-100); Monocytes Absolute Auto 700 /uL (0-900); Monocytes Percent Auto 5.9 % (3-14); Neutrophils Absolute Auto 10100 /uL (1500-7000); Neutrophils Percent Auto 82.4 % (50-75); Platelet Count 195 X10^3/uL (150-400); Red Blood Cell Count 3.02 X10^6/uL (4.0-5.2); Red Cell Distribution Width 17.6 % (11.6-14.8); White Blood Cell Count 12.3 X10^3/uL (4.5-11.0)
[2020-06-09 04:51] LABS: HEMOLYSIS < 15 (0-50)
[2020-06-09 04:53] LABS: Potassium 2.5 mmol/L (3.4-5.1)
--- NOTE | 2020-06-09 05:24 | PC.NURSE ---
0500 Received notice from lab of critical value potassium at 2.5. [address] Alcantara. [address] Connolly to inform of critical potassium. No further instructions at this time. Did not receive phone call back from Dr. Alcantara.
[2020-06-09] MEDS: POTASSIUM CHLORIDE 20 MEQ/15 ML UDC 40 MEQ PO (08:19)
[2020-06-09] MEDS: OXYCODONE/ACETAMINOPHEN 5/325 TABLET 2 TAB PO ×4 (08:19→23:47)
[2020-06-09] MEDS: POTASSIUM CHLORIDE 40 MEQ in SODIUM CHLORIDE 0.9% 500 ML 130 ML IV (08:21)
--- NOTE | 2020-06-09 11:01 | CM.IDA ---
Initial DCP Assessment Note Patient is a 45 yo female, resident of [place]. Admitted for ongoing pelvic pain, followed by Dr Grey. Potassium being replenished today before consideration of surgical exploration. Of note, patient has current nicotine and ETOH dependence per chart review. PCP: Patient w/no current insurance and no PCP Payer: Self Pay Reviewed chart and met w/patient. Patient is hopeful she will be able to return home w/assist from her Bf upon DC. Patient eager to understand more about medical POC. Patient has 2 sons that live in [place], 21 and 23 yo that work a lot. P: DC expected home w/o needs from PUBLIC HEALTH DIRECTOR team, will follow closely in case any DC needs or concerns arise. [facility] Discharge Planning/Care Management CM Discharge Assessment Start: 06/09/20 10:57 Freq: Status: Active Protocol: Document 06/09/20 10:57 DANNIE (Rec: 06/09/20 11:01 DANNIE [id number]) Discharge Planning Assessment Assigned [employer] S[facility] Flannery DPOA/Assigned Designee Name Haim Landeros, partner Contact Information [phone] Advance Directives? No History Provided By Patient Prior Living Arrangements House Household Members significant other Type of transporation used prior to Drives own vehicle admit Independent with ADL's Yes Is patient alert and oriented? Yes Comment Patient states she has let her own medical needs go because she has been caring for her parents and grandparents, grandfather last week. Patient hopeful to focus on her own needs moving forward. Barriers to Discharge No Comment Not at this time, likely home w/family, r/o HH closer to [place] Discharge Plan Home Transportation Arrangement Family Referrals Initiated None needed Additional Comment At this time
[2020-06-09] MEDS: GENTAMICIN TROUGH 1 REQUEST MISC (11:11)
--- NOTE | 2020-06-09 11:31 | P.PN_ITS ---
Subjective Subjective Date Patient Seen: 06/09/20 Time Patient Seen: 11:31 Interval history: Patient states that her pain is still present but perhaps somewhat better than yesterday although her pain has been better when she is laying still than when she is moving since this started. She has is having less nausea and trying to eat small amounts of food. Exam Vital Signs (past 8 hours): - 06/09/20 05:00 06/09/20 07:55 06/09/20 08:28 Temperature 97.8 F 98.9 F Pulse Rate 78 75 Respiratory Rate 18 15 Blood Pressure 115/77 130/90 Pulse Oximetry 97 97 98 Oxygen Delivery Method Room Air Oxygen Flow Rate 0 Narrative Exam Narrative: Patient appears more comfortable. Patient's abdomen is soft, with left lower quadrant tenderness and no rebound. Extremities without edema and nontender. Discussed with patient proceeding in the a.m. for laparoscopy with removal of this mass likely left salpingo oophorectomy. Also removing the IUD that is imbedded in her uterus. This may require hysteroscopy. Consent form was reviewed with the patient. Risk of bleeding, infection, damage to internal structures such as bowel, bladder, ureters that could require opening the abd omen to repair or additional surgery, continued pain, need for additional surgery if the mass turns out to be carcinoma. Consent form was signed and questions answered. Although the patient was interested in tubal ligation as she might eventually be on DSHS discussed we could not tie her tubes because she did not sign a consent 30 days in advance. Objective Labs Result Diagrams: 06/09/20 04:05 06/09/20 04:05 Labs: Laboratory Results - last 24 hr 06/08/20 06/08/20 06/08/20 12:50 12:50 12:50 WBC 17.7 H RBC 3.44 L Hgb 12.3 Hct 35.6 L MCV 103.5 H MCH 35.9 H MCHC 34.6 RDW 17.5 H Plt Count 242 Neut % (Auto) 89.0 H Lymph % (Auto) 5.3 L [place] % (Auto) 5.2 Eos % (Auto) 0.1 L Baso % (Auto) 0.4 Neut # (Auto) 57955 H Lymph # (Auto) 900 L [place] # (Auto) 900 Eos # (Auto) 0 Baso # (Auto) 100 Sodium 134 L Potassium 2.0 L* Chloride 90 L Carbon Dioxide 38 H BUN 3 L Creatinine 0.34 L Estimated GFR > 60.0 BUN/Creatinine Ratio 8.8 Glucose 104 H Lactate 2.8 H Calcium 8.5 Magnesium Total Bilirubin 1.2 AST 84 H ALT 52 H Alkaline Phosphatase 163 H Total Protein 7.1 Albumin 3.4 L Globulin 3.7 Albumin/Globulin Ratio 0.9 L Urine Color Urine Appearance Urine pH Ur Specific [place] Urine Protein Urine Glucose (UA) Urine Ketones Urine Occult Blood Urine Nitrate Urine Bilirubin Ur Bilirubin Confirm Urine Urobilinogen Ur Leukocyte Esterase Urine RBC Urine WBC Ur Squamous Epith Cells Amorphous Sediment Urine Bacteria Urine Mucus Ur Culture Indicated? Urine Test COVID-19 PCR 06/08/20 06/08/20 06/08/20 13:09 13:09 15:06 WBC RBC Hgb Hct MCV MCH MCHC RDW Plt Count Neut % (Auto) Lymph % (Auto) [place] % (Auto) Eos % (Auto) Baso % (Auto) Neut # (Auto) Lymph # (Auto) [place] # (Auto) Eos # (Auto) Baso # (Auto) Sodium Potassium Chloride Carbon Dioxide BUN Creatinine Estimated GFR BUN/Creatinine Ratio Glucose Lactate 2.3 H Calcium Magnesium Total Bilirubin AST ALT Alkaline Phosphatase Total Protein Albumin Globulin Albumin/Globulin Ratio Urine Color [place] Urine Appearance Cloudy Urine pH 7.5 Ur Specific [place] 1.010 Urine Protein 1+ H Urine Glucose (UA) Trace H Urine Ketones Negative Urine Occult Blood 3+ H Urine Nitrate Positive H Urine Bilirubin 1+ H Ur Bilirubin Confirm Positive H Urine Urobilinogen 4.0 H Ur Leukocyte Esterase 1+ H Urine RBC >100/hpf H Urine WBC 30-100/hpf H Ur Squamous Epith Cells >30 /hpf H Amorphous Sediment Urine Bacteria Many (>30) H Urine Mucus Ur Culture Indicated? Cult not indicated Urine Test Negative COVID-19 PCR 06/08/20 06/08/20 06/08/20 17:27 18:00 18:00 WBC RBC Hgb Hct MCV MCH MCHC RDW Plt Count Neut % (Auto) Lymph % (Auto) [place] % (Auto) Eos % (Auto) Baso % (Auto) Neut # (Auto) Lymph # (Auto) [place] # (Auto) Eos # (Auto) Baso # (Auto) Sodium 136 L Potassium 2.8 L Chloride 96 L Carbon Dioxide 38 H BUN 4 L Creatinine 0.35 L Estimated GFR > 60.0 BUN/Creatinine Ratio 11.4 Glucose 102 H Lactate 2.5 H Calcium 7.5 L Magnesium Total Bilirubin AST ALT Alkaline Phosphatase Total Protein Albumin Globulin Albumin/Globulin Ratio Urine Color Urine Appearance Urine pH Ur Specific [place] Urine Protein Urine Glucose (UA) Urine Ketones Urine Occult Blood Urine Nitrate Urine Bilirubin Ur Bilirubin Confirm Urine Urobilinogen Ur Leukocyte Esterase Urine RBC 1-5/hpf D Urine WBC 5-10/hpf H Ur Squamous Epith Cells 1-5 /hpf D Amorphous Sediment 1+ Urine Bacteria Occasional (0-1) D Urine Mucus 1+ H Ur Culture Indicated? Specimen cultured Urine Test COVID-19 PCR 06/08/20 06/08/20 06/08/20 18:00 18:30 20:20 WBC RBC Hgb Hct MCV MCH MCHC RDW Plt Count Neut % (Auto) Lymph % (Auto) [place] % (Auto) Eos % (Auto) Baso % (Auto) Neut # (Auto) Lymph # (Auto) [place] # (Auto) Eos # (Auto) Baso # (Auto) Sodium Potassium Chloride Carbon Dioxide BUN Creatinine Estimated GFR BUN/Creatinine Ratio Glucose Lactate 2.1 Calcium Magnesium 1.6 Total Bilirubin AST ALT Alkaline Phosphatase Total Protein Albumin Globulin Albumin/Globulin Ratio Urine Color Urine Appearance Urine pH Ur Specific [place] Urine Protein Urine Glucose (UA) Urine Ketones Urine Occult Blood Urine Nitrate Urine Bilirubin Ur Bilirubin Confirm Urine Urobilinogen Ur Leukocyte Esterase Urine RBC Urine WBC Ur Squamous Epith Cells Amorphous Sediment Urine Bacteria Urine Mucus Ur Culture Indicated? Urine Test COVID-19 PCR Negative 06/09/20 06/09/20 04:05 04:05 WBC 12.3 H RBC 3.02 L Hgb 10.7 L Hct 31.5 L MCV 104.4 H MCH 35.3 H MCHC 33.8 RDW 17.6 H Plt Count 195 Neut % (Auto) 82.4 H Lymph % (Auto) 11.0 L [place] % (Auto) 5.9 Eos % (Auto) 0.4 L Baso % (Auto) 0.3 Neut # (Auto) 39468 H Lymph # (Auto) 1400 [place] # (Auto) 700 Eos # (Auto) 100 Baso # (Auto) 0 Sodium Potassium 2.5 L* Chloride Carbon Dioxide BUN Creatinine Estimated GFR BUN/Creatinine Ratio Glucose Lactate Calcium Magnesium Total Bilirubin AST ALT Alkaline Phosphatase Total Protein Albumin Globulin Albumin/Globulin Ratio Urine Color Urine Appearance Urine pH Ur Specific [place] Urine Protein Urine Glucose (UA) Urine Ketones Urine Occult Blood Urine Nitrate Urine Bilirubin Ur Bilirubin Confirm Urine Urobilinogen Ur Leukocyte Esterase Urine RBC Urine WBC Ur Squamous Epith Cells Amorphous Sediment Urine Bacteria Urine Mucus Ur Culture Indicated? Urine Test COVID-19 PCR Assessment & Plan Assessment and plan (1) Adnexal mass: Status: Acute (2) Malpositioned IUD: Status: Acute (3) Low blood potassium: Status: Acute Assessment & Plan narrative: Patient continuing to get potassium replacement. IV and oral. Continue IV antibiotics. Plan is for laparoscopy with removal of mass and removal of IUD in a.m..
[2020-06-09 11:57] LABS: Gentamicin Trough 1.2 ug/mL (0.0-2.0)
[2020-06-09] MEDS: GENTAMICIN 130 MG in SODIUM CHLORIDE 0.9% 100 ML 103.25 ML IV (14:22)
--- NOTE | 2020-06-09 15:31 | PC.NURSE ---
Patient has had tele on since the nighttime, ICU was never told she had telemetry and a paper was never filled out. Dr. Grey was telephoned for an order since patient's potassium was low, Dr. Grey gave a verbal order. Patient's pain is well controlled with the percocet, denies nausea.
[2020-06-09 16:08] LABS: Carbon Dioxide 30 mmol/L (22-32); Chloride 104 mmol/L (98-107); HEMOLYSIS < 15 (0-50); Potassium 3.2 mmol/L (3.4-5.1); Sodium 135 mmol/L (137-145)
[2020-06-09] MEDS: SODIUM CHLORIDE 0.9% 1,000 ML 100 ML IV (16:23)
[2020-06-09] MEDS: KETOROLAC 30 MG/ML VIAL IV (19:19)
[2020-06-09] MEDS: GENTAMICIN 130 MG in SODIUM CHLORIDE 0.9% 100 ML 103 ML IV (20:30)
[2020-06-10] VITALS (22 sets, daily range): BP systolic 110–146; BP diastolic 73–99; PULSE 16–98; RESP 14–92; TEMP 35.9–36.9; O2SAT 2–99; BMI 38.2
--- NOTE | 2020-06-10 00:46 | PC.NURSE ---
Addendum entered by Patricia Enciso R.N. 06/10/20 06:51: 0651 Dr. Grey notified of weight increase. No further instructions at this time. Addendum entered by Patricia Enciso R.N. 06/10/20 06:38: 0635 Dr. Grey has been paged. The patient is schedule for sx this morning around 0845. Lung sounds are clear, but she does have a moist cough. Addendum entered by Patricia Enciso R.N. 06/10/20 06:32: 0630 AWNING INSTALLER rechecked patient's weight, which is now 114.01kg. This is an 8.8lb increase since 06/08/20. Reporting to provider. Original Note: 2300 Received safe hand-off report. The patient is alert and oriented, resting in bed. C/O abd pain, and states, My feet are looking a little swollen. Assessment findings show 1+ non-pitting edema in bilateral ankles and feet. Last weight was 110.1kg on 06/08/20. No s/sx of distress. She has been getting continuous IVF since arrival, and has been orally hydrating with fluids and food. Plan: Recheck weight in AM. Suggest DC IVF per provider discretion.
[2020-06-10] MEDS: CLINDAMYCIN 900 MG/50 ML PIGGYBACK 50 MG IV (04:05)
[2020-06-10] MEDS: KETOROLAC 30 MG/ML VIAL IV ×2 (04:11→12:08)
[2020-06-10] MEDS: HYDROMORPHONE 1 MG INJ IV ×5 (04:11→23:49)
[2020-06-10] MEDS: GENTAMICIN 130 MG in SODIUM CHLORIDE 0.9% 100 ML 103 ML IV (05:30)
[2020-06-10 06:12] LABS: Add Manual Diff / Slide Review NO; Basophils Absolute Auto 100 /uL (0-100); Basophils Percent Auto 0.4 % (0-2); Eosinophils Absolute Auto 100 /uL (0-450); Hematocrit 31.9 % (36-46); Hemoglobin 10.8 g/dL (12.0-16.0); Lymphocytes Absolute Auto 1000 /uL (1100-4500); Lymphocytes Percent Auto 8.3 % (25-40); Mean Corpuscular HGB Conc 33.9 % (30-36); Mean Corpuscular Hemoglobin 35.6 PG (26-34); Mean Corpuscular Volume 104.8 fL (80-100); Monocytes Absolute Auto 700 /uL (0-900); Monocytes Percent Auto 5.7 % (3-14); Neutrophils Absolute Auto 9900 /uL (1500-7000); Neutrophils Percent Auto 84.6 % (50-75); Platelet Count 196 X10^3/uL (150-400); Red Blood Cell Count 3.05 X10^6/uL (4.0-5.2); Red Cell Distribution Width 18.2 % (11.6-14.8); White Blood Cell Count 11.7 X10^3/uL (4.5-11.0)
[2020-06-10 06:22] LABS: Carbon Dioxide 30 mmol/L (22-32); Chloride 104 mmol/L (98-107); HEMOLYSIS < 15 (0-50); Sodium 136 mmol/L (137-145)
[2020-06-10] MEDS: OXYCODONE/ACETAMINOPHEN 5/325 TABLET 2 TAB PO ×3 (07:39→20:53)
[2020-06-10] MEDS: ONDANSETRON 4 MG/2 ML INJ IV ×2 (07:39→12:08)
--- NOTE | 2020-06-10 08:02 | PM.PREOP ---
Pre-operative Note COVID-19 COVID-19 status: Negative Result date/Date tested (Pos, Neg/Pending): 06/08/20 Interval Note History & Physical reviewed/Exam performed by Physician: Yes Changes to H&P: No
[2020-06-10] MEDS: LACTATED RINGERS 1,000 ML 42 ML IV ×2 (08:40→12:00)
[2020-06-10] MEDS: CEFAZOLIN 2 GM/100 ML FROZ.PIGGY IV (10:05)
[2020-06-10] MEDS: BUPIVACAINE 0.5% W/ EPI (PF) 30 ML VIAL INJ (10:06)
--- NOTE | 2020-06-10 10:53 | P.OP_ITS ---
Operative Date/Time/Diagnoses Date of procedure: 06/10/20 Time of procedure: 10:54 Pre-op diagnosis: Intra op consult for possible bowel involvement Post-op diagnosis: other (pelvic abscess, possible diverticulitis) Procedure & Clinicians Procedure: Intra op emergency consult Diagnostic laparoscopy Drain placement Rigid sigmoidoscopy Same procedure as scheduled: No Indications: This is a patient of Dr. Grey to was taken to the operating room for laparoscopic evaluation of her pelvic abscess. I was called into the room and Dr. Grey explained to me that as they were investigating the pelvic abscess, it appear that it was more adherent to the colon than the tube and ovary. They got into a couple of deep pockets of pus, and were concerned that the colon may be involved. Surgeon: Tequila Velasquez Executive Director [employer]: Sheila Grey Anesthesia Type: General Operative Notes Prosthetic devices, grafts, tissues, transplants, or devices: Nineteen round Reymundo drain Procedure in detail: As I came into the operating room, the patient was already under general anesthesia, and Dr. Grey and Dr. Subramanian were performing laparoscopic surgery. I discussed the case with them and looked at the screen as they were dissecting. It appeared the patient had an abscess in the left pelvis, associated with the sigmoid colon and tube and ovary. I reviewed the patient's CT scan. I recommended that we use a rigid sigmoidoscope to evaluate for perforation. The rigid sigmoidoscope was brought into the field, and introduced into the rectum in the usual fashion. I gradually advanced the scope for about 15 cm under direct visualization, while insufflating the colon. I insufflated the colon, while Dr. Grey filled the pelvis with warm saline. The entire sigmoid colon was covered with saline, and upon insufflation of the colon, no bubbling of air from the rectum was seen. At this point I felt fairly comfortable that there is at least not a significant perforation of the colon. I then scrubbed in to assist with placing a drain. A 19 round Reymundo drain was brought in through the left lateral port site, and positioned in the pelvis over the area of concern. Once the drain was in appropriate position, Dr. Grey was sewing it in with nylon suture, and I scrubbed out of the procedure. When I left the room, the patient was in stable condition, under general anesthesia, and in the care of Dr. Grey. Complications: none Post-operative Condition: stable Disposition: other (Care of the patient returned to Dr. Grey) Plan for aftercare: Recommendations: Zosyn 3.375 g q.6 hours Drain management Consider repeat CT scan, or flexible sigmoidoscopy if no improvement on antibiotic Clear liquid diet once tolerating p.o. I will continue to follow when the patient is back upstairs
--- NOTE | 2020-06-10 11:25 | PC.NURSE ---
Addendum entered by Herve Loyd R.N. 06/10/20 14:40: Patient came back from PACU at 1330. Patient in pain and tearful. Patient has Reymundo drain w/ 60cc since she's been on the floor but PACU reported 790cc out. Pain was 8/10. 1mg IV dilaudid given at 1400, patient reports pain now 6/10. Patient was able to get up to the bathroom and urinate, and is having her menstrual cycle. Abdominal dressing is intact w/ some leakage and was enforced with an ABD pad. Lap sites CDI w/ bandages. Original Note: Patient VSS, pain 7/10. Patient went to OR at 0830.
--- NOTE | 2020-06-10 11:45 | PM.OP.1 ---
Operative Date/Time/Diagnoses Date of procedure: 06/10/20 Time of procedure: 11:45 Pre-op diagnosis: complex left pelvic mass, malpositioned retained IUD Post-op diagnosis: same (Tubo-ovarian abscess) Procedure & Clinicians Procedure: Laparoscopy with drainage of pelvic abscess and placement of drain, hysteroscopy with removal of retained IUD. Intraoperative consult with surgery, see Dr. Trent's note Same procedure as scheduled: Yes Indications: Patient admitted with white blood cell count elevated, pelvic complex mass with differential diagnosis of pelvic abscess or complex ovarian mass with ultrasound showing malpositioned IUD in the uterus Surgeon: Sheila Grey Anesthesia Type: General Operative Notes Closure Type: primary Specimen(s): none sent Applied: drain(s) (Pelvic drain) Estimated Blood Loss (mL): 20 Blood products transfused: none Procedure in detail: Patient was brought to the operating room where she underwent general anesthesia. She was placed in low yellowfin stirrups and prepped and draped in usual sterile fashion. Pulsatile stockings were in place and functional. Warming was in place. A single-tooth tenaculum was placed on the anterior lip of the cervix. The IUD strings were grasped but the strings from the IUD without retrieval of the IUD. The cervix dilated to #6 Hegar dilator. The Monisha uterine manipulator was placed and balloon inflated with 3 mL of air. The area of the incisions were injected with half percent Marcaine with epinephrine. An incision was made in the umbilicus with a scalpel and the Verres needle placed in the abdomen. Confirmation of correct placement of the needle was performed by withdrawing on the syringe and then allowing fluid to fall freely through the needle. The abdomen was insufflated to 2 L of CO2. A 5 mm trocar was placed under direct visualization. 2 other 5 mm trochars were placed in the right and left lower quadrant under direct visualization after incising the skin. There did not appear to be any damage with placement of the trocars. There was adhesions in the left lower quadrant that during initial lysis there was a large amount of pus released. At this point an additional 2 g of Ancef were given to the patient. The abdomen was irrigated copiously. Careful blunt dissection around the area uncovered several areas of walled-off pus. The left ovary and fallopian tube were identified involving the mass. The colon was also involved in the mass. Dr. Trent was consulted to make sure there was no concern for perforation of the descending colon as the cause of the mass. See her dictation but there did not appear to be any significant hole the intestine after inflating the rectum with air. At this point the intestine was so inflated visualization was difficult. A drain was placed through the left lower quadrant trocar and placed in the pelvis. This was tied in place. The CO2 was allowed to escape from the abdomen. The incisions were closed with 4-0 Monocryl. Next the patient was re-prepped and draped and a single-tooth tenaculum placed on the cervix. The hysteroscope was placed through the cervix into the uterus and using the resecting loop the arms of the ParaGard IUD were teased out of the myometrium and the IUD was grasped and removed without difficulty and intact. The patient went to the recovery room in stable condition. Counts of instruments and sponges were correct. Complications: none Post-operative Condition: stable Disposition: Acute Care Plan for aftercare: Patient will be continued on IV antibiotics although a switched to IV Zosyn and oral doxycycline. The drain will be monitored until decreased fluid with surgery to recommend when it will be removed. Patient will be discharged after documentation of stability after drain removed.
[2020-06-10] MEDS: fentaNYL 100 MCG/2 ML INJ IV ×2 (12:05→12:10)
[2020-06-10] MEDS: HYDROMORPHONE 2 MG INJ IV ×4 (12:15→12:30)
--- NOTE | 2020-06-10 12:27 | CM.DPC ---
DCP continued: patient had a Laparoscopic pelvic abscess drained on 06/10. Patient will be here a day or two more, D/C after stable and drain removed Per operative report. Patient still plans on going home with Significant other at D/C. no needs noted at this time . PROJECT ANALYST desk will follow to assist with any needs that may arise prior to D/C. Cierra Landeros RN
[2020-06-10] MEDS: OXYCODONE IR 5 MG TABLET PO (13:01)
[2020-06-10] MEDS: LACTATED RINGERS 1,000 ML 100 ML IV ×2 (13:55→23:48)
[2020-06-10] MEDS: PIPERACILLIN-TAZO 3.375 GM/50 ML FROZ.PIGGY IV ×2 (13:57→19:42)
[2020-06-10] MEDS: POTASSIUM CHLORIDE 20 MEQ/15 ML UDC PO (16:04)
[2020-06-10] MEDS: IBUPROFEN 600 MG TABLET PO (19:43)
[2020-06-10] MEDS: DOXYCYCLINE HYCLATE 100 MG TABLET PO (20:53)
--- NOTE | 2020-06-11 00:52 | PC.NURSE ---
Addendum entered by Amalia Fan R.N. 06/11/20 06:03: States pain still not improving and now rates severity as 8/10 so medicated with IV Dilaudid. Addendum entered by Amalia Fan R.N. 06/11/20 05:28: When pain med reassessed patient was asleep but now stating pain is only 7/10 so medicated with Ibuprofen. Addendum entered by Amalia Fan R.N. 06/11/20 04:50: States pain currently is 8/10 so medicated with Percocet. Had 800cc liquid stool/urine mix. Addendum entered by Amalia Fan R.N. 06/11/20 02:44: Noted telemetry order was discontinued by Dr Grey yesterday upon return from surgery so telemetry d'cd. Addendum entered by Amalia Fan R.N. 06/11/20 00:59: Pain still at 7/10 so medicated now with Percocet. Original Note: Patient seen at 0005 and assessed. Is alert and oriented. Breath sounds with expiratory wheezing throughout but RA sat is 95%; states she is a smoker but is going to quit smoking starting with this hospitalization. HRR; telemetry reading is SR. Denies nausea. BT present and is passing flatus; reports very small formed stool on previous shift. Complains of 9/10 sharp, crampy like abdominal pain worsening with movement; medicated with IV Dilaudid. Bandaid dressings x 2 to abdomen are CDI. Dressing around Reymundo drain intact with some bleeding around insertion site. Drain is compressed and intact. Has bruising on right UE, left knee and left thigh. Wearing bilateral calf SCD's. Reports no falls but does feel weak when up to bathroom; fall risk score is moderate and bed alarm is activated.
[2020-06-11] MEDS: OXYCODONE/ACETAMINOPHEN 5/325 TABLET 2 TAB PO ×5 (00:57→20:42)
[2020-06-11] MEDS: PIPERACILLIN-TAZO 3.375 GM/50 ML FROZ.PIGGY IV ×4 (01:30→19:43)
[2020-06-11 04:51] VITALS: BP 133/75; PULSE 81; RESP 20; TEMP 36.1; O2SAT 98
[2020-06-11] MEDS: IBUPROFEN 600 MG TABLET PO ×2 (05:27→23:19)
[2020-06-11] MEDS: HYDROMORPHONE 1 MG INJ IV ×3 (06:01→18:57)
[2020-06-11 06:03] LABS: Add Manual Diff / Slide Review NO; Basophils Absolute Auto 0 /uL (0-100); Basophils Percent Auto 0.4 % (0-2); Eosinophils Absolute Auto 100 /uL (0-450); Eosinophils Percent Auto 1.1 % (2-4); Hematocrit 32.7 % (36-46); Hemoglobin 11.2 g/dL (12.0-16.0); Lymphocytes Absolute Auto 1100 /uL (1100-4500); Lymphocytes Percent Auto 10.5 % (25-40); Mean Corpuscular HGB Conc 34.1 % (30-36); Mean Corpuscular Volume 105.6 fL (80-100); Monocytes Absolute Auto 400 /uL (0-900); Monocytes Percent Auto 3.8 % (3-14); Neutrophils Absolute Auto 8500 /uL (1500-7000); Neutrophils Percent Auto 84.2 % (50-75); Platelet Count 224 X10^3/uL (150-400); Red Cell Distribution Width 18.4 % (11.6-14.8); White Blood Cell Count 10.1 X10^3/uL (4.5-11.0)
[2020-06-11 06:11] LABS: Carbon Dioxide 30 mmol/L (22-32); Chloride 104 mmol/L (98-107); HEMOLYSIS < 15 (0-50); Potassium 3.3 mmol/L (3.4-5.1); Sodium 136 mmol/L (137-145)
--- NOTE | 2020-06-11 08:25 | PM.PN.1 ---
Subjective Subjective Date Patient Seen: 06/11/20 Time Patient Seen: 11:18 Interval history: No acute events overnight. The patient reports improved pain control, she is voiding, she is passing flatus, she denies nausea, denies vomiting, denies other complaints. Exam Vital Signs (past 8 hours): - 06/11/20 04:51 Temperature 96.9 F L Pulse Rate 81 Respiratory Rate 20 Blood Pressure 133/75 Pulse Oximetry 98 Oxygen Delivery Method Room Air Oxygen Flow Rate 0 Narrative Exam Narrative: GENERAL: Alert, comfortable, obese. Appears stated age. Answers questions promptly and appropriately. Vital signs noted. HENT: Normocephalic, atraumatic. Hearing intact. EYES: Conjunctiva pink, sclera white, no periorbital swelling. CARDIOVASCULAR: Regular rate. No pedal edema. RESPIRATORY: Non-tachypneic, breathing comfortably on room air. GASTROINTESTINAL: Abdomen soft and non-distended; incisions intact with Band-Aids over top of her laparoscopic port sites. JANENE drain in place with murky appearing purulent output in the drain. Drain fluid was sent for culture Objective Labs Result Diagrams: 06/11/20 05:40 06/11/20 05:40 Labs: Laboratory Results - last 24 hr 06/11/20 06/11/20 05:40 05:40 WBC 10.1 RBC 3.10 L Hgb 11.2 L Hct 32.7 L MCV 105.6 H MCH 36.0 H MCHC 34.1 RDW 18.4 H Plt Count 224 Neut % (Auto) 84.2 H Lymph % (Auto) 10.5 L [place] % (Auto) 3.8 Eos % (Auto) 1.1 L Baso % (Auto) 0.4 Neut # (Auto) 8500 H Lymph # (Auto) 1100 [place] # (Auto) 400 Eos # (Auto) 100 Baso # (Auto) 0 Sodium 136 L Potassium 3.3 L Chloride 104 Carbon Dioxide 30 Assessment & Plan Assessment and plan (1) Abscess of ovary: Status: Acute (2) Sepsis: Qualifiers: Sepsis acute organ dysfunction status: without acute organ dysfunction Sepsis type: sepsis due to unspecified organism Qualified Code(s): A41.9 - Sepsis, unspecified organism Status: Acute Assessment & Plan narrative: This is a 45-year-old woman who is postop day 1 from laparoscopic drainage of an abscess, and JANENE drain placement. I believe her abscess is likely not from the colon, but rather from the ovary. On reviewing her CT scan, there is no significant inflammatory change seen in the colon itself. It would be quite unlikely for an abscess to appear without a significantly inflamed colon. Colon related abscesses usually arise in the setting of diverticulitis, which would show up as a thickened colon, with fat stranding around it on the CT scan, and would likely be air in the abscess cavity. On her CT scan the abscess is septated, and looks almost like simple fluid, which is much more consistent with an ovarian origin. I did send the fluid from the drain for culture today, to hopefully help elucidate the etiology of the abscess even further. I would recommend that we remove the drain once it is putting out less than 50 cc a day, and that she go home on appropriate antibiotic coverage including broad coverage of gram negatives . Plan: Fluid sent for culture Advance diet as tolerated COVID-19 COVID-19 status: Negative Result date/Date tested (Pos, Neg/Pending): 06/08/20 Time Spent With Patient Time with patient: 15-24 minutes Quality VTE Deep Vein Thrombosis/Pulmonary Embolism Present on Admission: No
[2020-06-11 08:30] VITALS: BP 127/76; PULSE 76; RESP 16; TEMP 36.2; O2SAT 96
[2020-06-11] MEDS: DOXYCYCLINE HYCLATE 100 MG TABLET PO ×2 (09:03→20:42)
[2020-06-11] MEDS: POTASSIUM CHLORIDE 20 MEQ/15 ML UDC PO ×2 (09:03→18:05)
[2020-06-11 09:07] VITALS: O2SAT 96
--- NOTE | 2020-06-11 09:24 | P.PN_ITS ---
Subjective Subjective Date Patient Seen: 06/11/20 Time Patient Seen: 09:24 Interval history: This patient is a 45-year-old postop day 1 status post laparoscopic drainage a left lower quadrant abscess of unclear origin. The patient has been receiving IV Zosyn, has a drain in place, and reports feeling much improved this morning with improved pain control, voiding, passing flatus, no nausea, vomiting, or other complaints. The patient has a history of smoking and asthma and reports that she is often transiently short of breath, reports that she is at her baseline with no chest pain or palpitations. Exam Vital Signs (past 8 hours): - 06/11/20 04:51 Temperature 96.9 F L Pulse Rate 81 Respiratory Rate 20 Blood Pressure 133/75 Pulse Oximetry 98 Oxygen Delivery Method Room Air Oxygen Flow Rate 0 Const General: cooperative, healthy appearing and comfortable Resp Effort & Inspection: normal respiratory effort Auscultation: wheezes scattered wheezes (Rare, resolved with repeat deep breaths) Cardio Rate: regular rate Rhythm: regular rhythm GI Inspection: incision (c/d/i) and obesity Palpation: soft and No tender Other: Drain in place, covered with bandage. Reviewed output, 40 cc overnight but significant output yesterday. Drain remains in place, will monitor output today with activity. Skin General: no rashes or lesions noted Extrem General: normal to inspection Objective Labs Result Diagrams: 06/11/20 05:40 06/11/20 05:40 Labs: Laboratory Results - last 24 hr 06/11/20 06/11/20 05:40 05:40 WBC 10.1 RBC 3.10 L Hgb 11.2 L Hct 32.7 L MCV 105.6 H MCH 36.0 H MCHC 34.1 RDW 18.4 H Plt Count 224 Neut % (Auto) 84.2 H Lymph % (Auto) 10.5 L [place] % (Auto) 3.8 Eos % (Auto) 1.1 L Baso % (Auto) 0.4 Neut # (Auto) 8500 H Lymph # (Auto) 1100 [place] # (Auto) 400 Eos # (Auto) 100 Baso # (Auto) 0 Sodium 136 L Potassium 3.3 L Chloride 104 Carbon Dioxide 30 Assessment & Plan Assessment & Plan narrative: This patient is postop day 1 status post la paroscopic drainage of left lower quadrant abscess of unclear origin. The patient appears to be improving, with improving symptoms, decreasing drain output, normalizing white count, normal vital signs, and improving electrolyte imbalances. Discussed with the patient that for abscesses with a gynecologic source, standard would be 48 hours of antibiotics after drainage and then discharge on p.o. antibiotics for a total of 14 days. Discussed broadening coverage with an additional medication to cover GI tract sources. Discussed possible discharge tomorrow if improvement continues. - Cont. Zosyn IV 3.375mg q6hrs, doxycycline 100mg PO BID today - Continue current pain control regimen - Diet advanced this AM, patient with regular diet breakfast at bedtime - Encouraged ambulation, offered albuterol PRN and patient currently declined - repeat labs in AM
[2020-06-11] MEDS: LACTATED RINGERS 1,000 ML 100 ML IV ×2 (10:45→21:50)
[2020-06-11 15:42] VITALS: BP 126/81; PULSE 83; RESP 18; TEMP 35.7; O2SAT 97
[2020-06-11 16:18] VITALS: O2SAT 99
[2020-06-12] VITALS: BP 141/95; PULSE 81; RESP 16; TEMP 37.1; O2SAT 96
[2020-06-12] MEDS: HYDROMORPHONE 1 MG INJ IV (00:18)
--- NOTE | 2020-06-12 00:29 | PC.NURSE ---
Addendum entered by Amalia Fan R.N. 06/12/20 06:23: Slept for several hours. Getting up to bathroom independently this morning as has refused to have SCD's on. 15cc from Reymundo drain this shift. Addendum entered by Amalia Fan R.N. 06/12/20 02:19: Up to bathroom and reports abdominal pain is now 5/10 so medicated with Percocet. Original Note: Patient seen and assessed at 2330. Is alert and oriented but tearful related to pain; recently given Ibuprofen per evening RN and ice pack applied. Breath sounds diminished at bases with RA sat of 96%. HRR. Elevated BP at 0000 of 141/95 which may be related to pain. Complained at shift change of nausea but declined intervention and is now drinking cranberry juice without issue. BT present and is passing flatus. Complaining currently that abdominal pain is still 8/10 and is tearful so medicated with IV Dilaudid. Has been voiding without dysuria, frequency or urgency. Lap sites CHARGE NURSE and are well approximated and without drainage or redness. Dressing over Reymundo site intact with old sanguinous drainage noted; drain is intact and compressed with serosanguinous drainage in bulb. Is able to turn herself in bed. Up to bathroom with SBA. Wearing bilateral calf SCD's. Fall risk score is moderate but patient is calling for assistance appropriately so alarm is not being used at this time.
[2020-06-12] MEDS: PIPERACILLIN-TAZO 3.375 GM/50 ML FROZ.PIGGY IV ×2 (01:49→08:30)
[2020-06-12] MEDS: OXYCODONE/ACETAMINOPHEN 5/325 TABLET 2 TAB PO ×3 (02:16→10:40)
[2020-06-12 04:30] VITALS: BP 136/76; PULSE 74; RESP 16; TEMP 36.7; O2SAT 95
[2020-06-12 06:43] LABS: Add Manual Diff / Slide Review NO; Basophils Absolute Auto 100 /uL (0-100); Basophils Percent Auto 0.7 % (0-2); Eosinophils Absolute Auto 200 /uL (0-450); Eosinophils Percent Auto 1.4 % (2-4); Hematocrit 37.1 % (36-46); Hemoglobin 12.3 g/dL (12.0-16.0); Lymphocytes Absolute Auto 1200 /uL (1100-4500); Mean Corpuscular HGB Conc 33.2 % (30-36); Mean Corpuscular Hemoglobin 35.9 PG (26-34); Mean Corpuscular Volume 108.1 fL (80-100); Monocytes Absolute Auto 500 /uL (0-900); Monocytes Percent Auto 4.1 % (3-14); Neutrophils Absolute Auto 10400 /uL (1500-7000); Neutrophils Percent Auto 83.8 % (50-75); Platelet Count 217 X10^3/uL (150-400); Red Blood Cell Count 3.43 X10^6/uL (4.0-5.2); Red Cell Distribution Width 18.8 % (11.6-14.8); White Blood Cell Count 12.4 X10^3/uL (4.5-11.0)
[2020-06-12 06:48] LABS: BUN Creatinine Ratio 7.1 (6-22); Blood Urea Nitrogen 3 mg/dL (7-17); Calcium 8.4 mg/dL (8.4-10.2); Carbon Dioxide 28 mmol/L (22-32); Chloride 105 mmol/L (98-107); Estimated Glomerular Filt Rate > 60.0 mL/min (>60); Glucose 86 mg/dL (70-100); HEMOLYSIS 28 (0-50); Potassium 3.5 mmol/L (3.4-5.1); Sodium 138 mmol/L (137-145)
[2020-06-12 07:30] VITALS: BP 141/98; PULSE 76; RESP 16; TEMP 36.7; O2SAT 96
[2020-06-12 08:30] VITALS: O2SAT 96
[2020-06-12] MEDS: POTASSIUM CHLORIDE 20 MEQ/15 ML UDC PO (08:31)
[2020-06-12] MEDS: DOXYCYCLINE HYCLATE 100 MG TABLET PO (08:31)
[2020-06-12] MEDS: LACTATED RINGERS 1,000 ML 100 ML IV (09:41)
--- NOTE | 2020-06-12 10:07 | PM.PN.1 ---
Subjective Subjective Date Patient Seen: 06/12/20 Time Patient Seen: 09:30 Interval history: No acute events overnight. Patient feels well, and is eating well and having bowel movements. She denies significant pain. Exam Vital Signs (past 8 hours): - 06/12/20 04:30 06/12/20 07:30 Temperature 98.1 F 98.0 F Pulse Rate 74 76 Respiratory Rate 16 16 Blood Pressure 136/76 141/98 H Pulse Oximetry 95 96 Oxygen Delivery Method Room Air Oxygen Flow Rate 0 Narrative Exam Narrative: GENERAL: Alert, comfortable, obese. Appears stated age. Answers questions promptly and appropriately. Vital signs noted. HENT: Normocephalic, atraumatic. Hearing intact. EYES: Conjunctiva pink, sclera white, no periorbital swelling. CARDIOVASCULAR: Regular rate. No pedal edema. RESPIRATORY: Non-tachypneic, breathing comfortably on room air. GASTROINTESTINAL: Abdomen soft and non-distended, nontender. JANENE drain with serosanguineous output, removed during the exam. Steri-Strips placed on the skin. GENITALURINARY: No flank tenderness. MUSCULOSKELETAL: Equal tone and mass bilaterally. SKIN: Warm, dry, soft, appropriate color for ethnicity. No other lesions, rashes, or wounds. NEURO: Alert and Oriented X 3. No gross sensory deficits, or cognitive issues. PSYCH: Appropriate affect and mood. Objective Labs Result Diagrams: 06/12/20 06:10 06/12/20 06:10 Labs: Laboratory Results - last 24 hr 06/12/20 06/12/20 06:10 06:10 WBC 12.4 H RBC 3.43 L Hgb 12.3 Hct 37.1 MCV 108.1 H MCH 35.9 H MCHC 33.2 RDW 18.8 H Plt Count 217 Neut % (Auto) 83.8 H Lymph % (Auto) 10.0 L [place] % (Auto) 4.1 Eos % (Auto) 1.4 L Baso % (Auto) 0.7 Neut # (Auto) 60383 H Lymph # (Auto) 1200 [place] # (Auto) 500 Eos # (Auto) 200 Baso # (Auto) 100 Sodium 138 Potassium 3.5 Chloride 105 Carbon Dioxide 28 BUN 3 L Creatinine 0.42 L Estimated GFR > 60.0 BUN/Creatinine Ratio 7.1 Glucose 86 Calcium 8.4 Assessment & Plan Assessment & Plan narrative: This is a 45-year-old woman who is postop day 2 from laparoscopic drainage of a pelvic abscess, and placement of a pelvic drain. The drain fluid was sent for culture yesterday, and no organisms were seen. Copious white blood cells were seen on the Gram stain. Final culture still pending. The patient feels well, and is having bowel movements, and tolerating a diet. Her drain output has dramatically decreased, and the drain was removed today during my exam. I discussed constipation with the patient, and recommendations to help prevent constipation. I wrote up my recommendations in the discharge section of her chart. She may come in to see me in a few weeks, and we can discuss how it is going with prevent him a constipation, and whether not she would like to have a colonoscopy in a few months to evaluate her colon for diverticulosis/diverticulitis. Recommendations: As above, okay for dispo from my standpoint, on home antibiotics and bowel regimen COVID-19 COVID-19 status: Negative Time Spent With Patient Time with patient: 25 - 35 minutes Quality VTE Deep Vein Thrombosis/Pulmonary Embolism Present on Admission: No
--- NOTE | 2020-06-12 10:38 | PM.DS.1 ---
History of Present Illness History of Present Illness Date Patient Seen: 06/12/20 Time Patient Seen: 10:30 Date of Onset of Symptoms: 06/08/20 Chief complaint: pelvic pain/iud/9/10pain x4 days Narrative: This patient is a 45yo P2 admitted for a left lower quadrant abscess. She was takeb for laparoscopic drainage on 06/10 and treated with IV zosyn and PO doxycycline for 48 more hours, with significant clinical improvement of her symptoms though no clear etiology for the abscess was determined. She is meeting goals for discharge on PO antibiotics, and will be followed up in the clinic by both engineer second assistant and general surgery. Incidental electrolyte abnormalities on admission slowly normalized with improvement of her infection and administration of lactated ringers. Discharge Providers Provider Date of admission: 06/08/20 18:52 Discharge Date: 06/12/20 Consults: Tequila Velasquez MD Discharge provider: Lynnette Hartman MD Summary Hospital Course Discharge Diagnosis: left pelvic abscess Hospital Course: This patient is a 45yo P2 admitted for a left lower quadrant abscess. She was takeb for laparoscopic drainage on 06/10 and treated with IV zosyn and PO doxycycline for 48 more hours, with significant clinical improvement of her symptoms though no clear etiology for the abscess was determined. She is meeting goals for discharge on PO antibiotics, and will be followed up in the clinic by both engineer second assistant and general surgery. Incidental electrolyte abnormalities on admission slowly normalized with improvement of her infection and administration of lactated ringers. Status at Discharge Cognitive/behavioral status at discharge: oriented Functional status at discharge: independent ambulation Overall status at discharge: patient is progressing back to baseline Time Spent with Patient Time spent: Greater than 30 minutes Exam Vital Signs (past 8 hours): - 06/12/20 04:30 06/12/20 07:30 06/12/20 08:30 Temperature 98.1 F 98.0 F Pulse Rate 74 76 Respiratory Rate 16 16 Blood Pressure 136/76 141/98 H Pulse Oximetry 95 96 96 Oxygen Delivery Method Room Air Oxygen Flow Rate 0 Narrative Exam Narrative: Patient is sitting in the chair at bedside, well appearing. Has ambulated around the floor several times this morning, tolerating a regular diet, passing flatus, urinating normally. Denies vaginal bleeding or discharge. Good pain control, no fevers, no chills, no shortness of breath, no dizziness, no other complaints. Patient eager for discharge. Const General: cooperative, healthy appearing and comfortable Resp Effort & Inspection: normal respiratory effort Auscultation: clear to auscultation bilaterally Cardio Rate: regular rate Rhythm: regular rhythm GI Inspection: incision (Clean, dry, intact) Palpation: soft and No tender Skin General: no rashes or lesions noted Extrem General: normal to inspection Objective Labs Result Diagrams: 06/12/20 06:10 06/12/20 06:10 Labs: Laboratory Results - last 24 hr 06/12/20 06/12/20 06:10 06:10 WBC 12.4 H RBC 3.43 L Hgb 12.3 Hct 37.1 MCV 108.1 H MCH 35.9 H MCHC 33.2 RDW 18.8 H Plt Count 217 Neut % (Auto) 83.8 H Lymph % (Auto) 10.0 L [place] % (Auto) 4.1 Eos % (Auto) 1.4 L Baso % (Auto) 0.7 Neut # (Auto) 81030 H Lymph # (Auto) 1200 [place] # (Auto) 500 Eos # (Auto) 200 Baso # (Auto) 100 Sodium 138 Potassium 3.5 Chloride 105 Carbon Dioxide 28 BUN 3 L Creatinine 0.42 L Estimated GFR > 60.0 BUN/Creatinine Ratio 7.1 Glucose 86 Calcium 8.4 Discharge Assessment & Plan Assessment and Plan Assessment: This patient is admitted now status post laparoscopic drainage of left pelvic abscess with intraoperative consult by Dr. Velasquez of general surgery. She has no status post 48 hours of postoperative IV antibiotics, and is clinically significantly improved. We discussed a total of 2 weeks of antibiotics, and she was discharged on p.o. Flagyl and doxycycline. We discussed at length that she should not consume alcoholic beverages while taking Flagyl. We discussed precautions for return, and plans for follow-up. The patient vocalized understanding, and all questions were answered. Plan of Treatment: - 500mg PO metronidazole q8, 100mg doxycycline BID PO for total of 14 days of postoperative antibiotics. - motrin, hydrocodone for pain control - home remedies for constipation Discharge Plan Discharge Plan Patient Disposition: Home Provider Discharge Comment: Recommendations from Dr. Velasquez: Due to your chronic constipation, we recommend using a fiber supplement such as Metamucil, Benefiber, or psyllium husk. Use 2 tspn in 8 oz water once daily to start. You may increase or decrease the amount and frequency as needed. The goal is to have a soft, formed, stool without straining, and without having to sit on the toilet for more than 2 minutes to have a bowel movement. You may also use MiraLax, an udbd-bsf-ocnrtki laxative, if you are not able to achieve the desired result with the fiber supplement alone. If you are still having to sit a long time on the toilet or having hard bowel movements, or feeling ?backed up? add 1 dose of MiraLax per day, and increase to as much as 3 times per day if needed. You may call [facility] to make a follow-up appointment with Dr. Velasquez in the next few weeks. When we meet, we will discuss how your constipation management is going, and we will consider doing a colonoscopy in a couple of months. Discharge orders & Medications Prescriptions: New doxycycline hyclate 100 mg capsule 100 mg PO BID Qty: 24 RF: 0 metronidazole 500 mg tablet 500 mg PO Q8H Qty: 36 RF: 0 oxycodone 5 mg tablet 5 mg PO Q8H PRN (Reason: pain) Qty: 10 RF: 0 Follow up/Referrals: Sheila Grey MD [Physician] - 2 Weeks Tequila Velasquez MD [Physician] - 2 Weeks Diet/Activity/Treatments Diet: Regular Activity: Nothing in the vagina for 2 weeks. Avoid heavy lifting for 2 weeks. If you have severe pain, fevers, chills, abnormal incision or vaginal discharge, dizziness, chest pain, or any other symptoms, call or come to the emergency room. Skin/Wound/Dressing Care Report to your healthcare provider any signs of infection, such as:: chills, fever, night sweats, increased pain, unusual drainage and unusual redness Visit Report/Discharge Packet Instructions: DI for Aspiration of Pelvic Abscess Stand Alone Forms: Surgery Discharge Visit Report Forms: Patient Portal/API, Stroke Signs & Symptoms Quality VTE Deep Vein Thrombosis/Pulmonary Embolism Present on Admission: No
--- NOTE | 2020-06-12 11:35 | PC.NURSE ---
Pt is showered and dressed for discharge home with Son. IV's have been removed. Went over d/c instructions with Pt. - discussed d/c meds, time of last dose, reviewed stroke education, encouraged fluid intake to prevent constipation or dehydration, and follow up. Dsg to abdomen changed after shower to a Coversite. Pt is now waiting for her son and is ready to go as soon as he arrives.
== END 2020-06-12 12:06 | disposition home or self-care (01) | DRG 982 ==
LOC: ED 18:42 → AC 18:53
PROVIDERS: Obstetrics & Gynecology; Surgery; Admitting Provider Specialist; Emergency Provider Nurse Practitioner Family; Referring Provider Nurse Practitioner Family; Visit Provider Specialist
PROC: 0W9J4ZZ Drainage of Pelvic Cavity, Percutaneous Endoscopic Approach (ICD-10-PCS; principal; 2020-06-10 08:45)
PROC: 0DJD8ZZ Inspection of Lower Intestinal Tract, Via Natural or Artificial Opening Endoscopic (ICD-10-PCS; CPT 49320; 2020-06-10 08:45)
DX: N70.93 Salpingitis and oophoritis, unspecified (principal); N39.0 Urinary tract infection, site not specified; E87.6 Hypokalemia; F17.210 Nicotine dependence, cigarettes, uncomplicated; T83.32XA Displacement of intrauterine contraceptive device, initial encounter; Z11.59 Encounter for screening for other viral diseases
CPT/HCPCS: 36415; 49322; 58562; 74177; 76830; 76856; 80048; 80051; 80053; 80170; 81001; 81003; 81015; 81025; 83605; 83735; 84132; 85025; 87070; 87075; 87086; 87205; 87635; 93005; 96361; 96365; 96366; 96368; 96375; 99222; 99285; J0690; J1100; J1170; J1885; J2405; J2543; J3010; J3480; Q9967

== ENCOUNTER → 2020-06-27 08:28 | Outpatient (CLI) | payer SELFPAY ==
[2020-06-08 19:54] VITALS: BMI 36.8
[2020-06-27 09:15] LABS: Add Manual Diff / Slide Review NO; Basophils Absolute Auto 100 /uL (0-100); Basophils Percent Auto 0.7 % (0-2); Eosinophils Absolute Auto 100 /uL (0-450); Eosinophils Percent Auto 0.9 % (2-4); Hematocrit 43.1 % (36-46); Hemoglobin 14.6 g/dL (12.0-16.0); Lymphocytes Absolute Auto 1300 /uL (1100-4500); Lymphocytes Percent Auto 12.1 % (25-40); Mean Corpuscular HGB Conc 33.9 % (30-36); Mean Corpuscular Hemoglobin 34.6 PG (26-34); Monocytes Absolute Auto 800 /uL (0-900); Neutrophils Absolute Auto 8300 /uL (1500-7000); Neutrophils Percent Auto 78.3 % (50-75); Platelet Count 308 X10^3/uL (150-400); Red Blood Cell Count 4.22 X10^6/uL (4.0-5.2); Red Cell Distribution Width 16.7 % (11.6-14.8); White Blood Cell Count 10.5 X10^3/uL (4.5-11.0)
[2020-06-27 09:27] LABS: Carbon Dioxide 35 mmol/L (22-32); Chloride 93 mmol/L (98-107); Sodium 135 mmol/L (137-145)
[2020-06-27 09:42] LABS: HEMOLYSIS 16 (0-50)
[2020-06-27 09:59] LABS: Potassium 2.7 mmol/L (3.4-5.1)
== END ==
PROVIDERS: Referring Provider Specialist; Visit Provider Specialist
DX: E87.6 Hypokalemia (principal); N70.92 Oophoritis, unspecified
CPT/HCPCS: 36415; 80051; 85025

== ENCOUNTER 2020-06-27 10:50 | Emergency (ER) | payer SELFPAY ==
[2020-06-08 19:54] VITALS: BMI 36.8
[2020-06-27] VITALS (16 sets, daily range): BP systolic 126–184; BP diastolic 77–113; PULSE 95–117; RESP 0–24; TEMP 36; O2SAT 94–97; BMI 36.8
[2020-06-27 11:45] LABS: Add Manual Diff / Slide Review NO; Basophils Absolute Auto 100 /uL (0-100); Basophils Percent Auto 0.9 % (0-2); Eosinophils Absolute Auto 0 /uL (0-450); Eosinophils Percent Auto 0.3 % (2-4); Hematocrit 40.4 % (36-46); Lymphocytes Absolute Auto 1300 /uL (1100-4500); Lymphocytes Percent Auto 11.5 % (25-40); Mean Corpuscular HGB Conc 34.6 % (30-36); Mean Corpuscular Hemoglobin 35.3 PG (26-34); Mean Corpuscular Volume 102.1 fL (80-100); Monocytes Absolute Auto 700 /uL (0-900); Neutrophils Absolute Auto 9100 /uL (1500-7000); Neutrophils Percent Auto 81.3 % (50-75); Platelet Count 309 X10^3/uL (150-400); Red Blood Cell Count 3.95 X10^6/uL (4.0-5.2); White Blood Cell Count 11.2 X10^3/uL (4.5-11.0)
[2020-06-27 11:59] LABS: Alanine Aminotransferase 64 IU/L (<35); Albumin 4.4 g/dL (3.5-5.0); Albumin Globulin Ratio 1.1 (1.0-2.8); Alkaline Phosphatase 139 U/L (38-126); Aspartate Aminotransferase 119 IU/L (14-36); BUN Creatinine Ratio 9.3 (6-22); Bilirubin Total 0.7 mg/dL (0.2-1.3); Blood Urea Nitrogen 5 mg/dL (7-17); Calcium 9.6 mg/dL (8.4-10.2); Carbon Dioxide 29 mmol/L (22-32); Chloride 93 mmol/L (98-107); Estimated Glomerular Filt Rate > 60.0 mL/min (>60); Globulin 3.9 g/dL (1.7-4.1); Glucose 110 mg/dL (70-100); HEMOLYSIS < 15 (0-50); Magnesium 1.5 mg/dL (1.6-2.3); Sodium 136 mmol/L (137-145); Total Protein 8.3 g/dL (6.3-8.2)
[2020-06-27 12:03] LABS: Potassium 2.5 mmol/L (3.4-5.1)
[2020-06-27] MEDS: ONDANSETRON 4 MG/2 ML INJ IV (13:05)
[2020-06-27] MEDS: KETOROLAC 60 MG/2 ML VIAL 30 MG IV (13:05)
[2020-06-27] MEDS: SODIUM CHLORIDE 0.9% 1,000 ML 1000 ML IV (13:13)
[2020-06-27] MEDS: MAGNESIUM SULFATE 2 GM/50 ML PIGGYBACK IV (13:14)
[2020-06-27] MEDS: POTASSIUM CHLORIDE 40 MEQ in SODIUM CHLORIDE 0.9% 500 ML 130 ML IV (13:14)
--- NOTE | 2020-06-27 14:16 | ED_ITS ---
HPI - Recheck/Abnormal Lab/Rx <JOCY IniguezBC - Last Filed: 06/27/20 18:11> General Chief Complaint: Recheck/Abnormal Lab/Rx Stated Complaint: low potassium Time Seen by Provider: 06/27/20 12:06 Source: patient Mode of arrival: Ambulatory Limitations: no limitations History of Present Illness HPI narrative: The patient is a 45-year-old female current everyday smoker surgery on 06/10 for pelvic abscess and placement of drain, hysterscopy be and removal of retained IUD. She was noted to have nausea and vomiting as well as loose stools. This goes between watery diarrhea and soft stools. She states that she does not have an appetite and is not keeping anything down. She states that she had follow-up this morning with Dr. Grey, who recheck her potassium. She was called and told her that her potassium was 2.7 so she was referred to the emergency department. She denies any chest pain or shortness of breath. She states she overall feels very weak and run down. She is taking clindamycin postoperatively. She wonders if the nausea vomiting and loose stools have contributed to her low potassium. 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 She states that overall her incisions are healing very well. Related Data Previous Rx's Medication Instructions Recorded ondansetron 4 mg disintegrating 4 mg PO Q6H PRN #20 tab 06/22/20 tablet omeprazole 40 mg capsule,delayed 40 mg PO DAILY #14 cap 06/27/20 release potassium chloride 20 mEq oral 20 meq PO BID #30 ea 06/27/20 packet Allergies Allergy/AdvReac Type Severity Reaction Status Date / Time No Known Drug Allergies Allergy Verified 06/27/20 08:06 Review of Systems <JOCY IniguezBC - Last Filed: 06/27/20 18:11> Review of Systems Narrative: GENERAL: See HPI HEENT: Denies sinus pain, ear pain, sore throat, difficulty swallowing, dizziness. RESPIRATORY: Denies dyspnea, cough, wheezing, hemoptysis, sputum. CARDIOVASCULAR: Denies chest pain, palpitations, orthopnea, edema, GASTROINTESTINAL: Denies nausea, vomiting, abdominal pain, diarrhea, constipation, melena. : See HPI MUSCULOSKELETAL: denies weakness, joint pain, or bony pain SKIN: Denies rash, skin lesions, or other NEUROLOGIC: Denies weakness, headache, numbness, change in speech, confusion, seizures, incoordination. PSYCHIATRIC: No concerning psychosocial issues. 12 point review of systems is negative except for those stated above Patient History <CLARISA Iniguez- - Last Filed: 06/27/20 18:11> Medical History (Updated 07/01/20 @ 15:37 by Tequila Velasquez MD) Constipation Surgical History History of Social History household members: significant other Smoking Status: Current every day smoker alcohol intake: current Smoking Status: Current every day smoker alcohol intake frequency: 0-2 drinks per day Substance Use Type: marijuana Exam <[facility] - Last Filed: 06/27/20 18:11> Narrative Exam Narrative: GENERAL: This is a well-nourished, well-developed patient, in no acute distress. HEAD: Atraumatic. Normocephalic. No temporal or scalp tenderness. EYES: Pupils equal round and reactive. Extraocular motions intact. No scleral icterus. No injection or drainage. ENT: Nose without bleeding, purulent drainage or septal hematoma. Wearing a mask. Airway patent. NECK: Trachea midline. No JVD or lymphadenopathy. Supple, nontender, no meningeal signs. CARDIOVASCULAR: Regular rate and rhythm RESPIRATORY: Clear to auscultation. Breath sounds equal bilaterally. No wheezes, rales, or rhonchi. No cough. No increased respiratory effort. No accessory muscle use. GASTROINTESTINAL: Abdomen soft, non-tender, nondistended. No hepato- splenomegaly, or palpable masses. No guarding. Active bowel sounds all 4 quadrants EXTREMITIES: No clubbing, cyanosis, or edema. No joint tenderness, effusion, or edema noted. BACK: Nontender without deformity or crepitance. No flank tenderness. NEURO: AOx3. SKIN: Abdominal incisions healing well, well-approximated, no extending erythema or drainage noted. Initial Vital Signs Initial Vital Signs: Vital Signs Temperature 96.8 F L 06/27/20 11:05 Pulse Rate 117 H 06/27/20 11:05 Respiratory Rate 18 11/30/20 11:05 Blood Pressure 135/84 06/27/20 11:05 Pulse Oximetry 96 06/27/20 11:05 <Melissa Ramirez DO - Last Filed: 07/02/20 18:10> Initial Vital Signs Initial Vital Signs: Vital Signs Temperature 96.8 F L 06/27/20 11:05 Pulse Rate 117 H 06/27/20 11:05 Respiratory Rate 18 06/27/20 11:05 Blood Pressure 135/84 06/27/20 11:05 Pulse Oximetry 96 06/27/20 11:05 Scores <JOCY IniguezBC - Last Filed: 06/27/20 18:11> GCS [place]ao coma scale eye opening: Spontaneous [place] coma scale verbal response: Orientated [place] coma scale motor response: Obey commands [place] coma scale total score: 15 Course <KELSY Iniguez - Last Filed: 06/27/20 18:11> Orders Ordered: Discontinued Medications Sodium Chloride (Normal Saline 0.9%) 1,000 mls @ 1,000 mls/hr IV BOLUS ONE Stop: 06/27/20 13:43 Last Infusion: 06/27/20 17:22 Dose: 0 mls/hr Documented by: Admin: 06/27/20 13:13 Dose: 1,000 mls/hr Documented by: TRICE Potassium Chloride 40 meq/ (Sodium Chloride) 520 mls @ 130 mls/hr IV NOW ONE Stop: 06/27/20 16:43 Last Infusion: 06/27/20 17:22 Dose: 0 mls/hr Documented by: TRICE Cosigned by: ESTHER Admin: 06/27/20 13:14 Dose: 130 mls/hr Documented by: TRICE Cosigned by: ADAMS Magnesium Sulfate (Magnesium Sulfate) 2 gm in 50 mls @ 25 mls/hr IV NOW ONE Stop: 06/27/20 14:43 Last Infusion: 06/27/20 15:31 Dose: 0 mls/hr Documented by: TRICE Cosigned by: ROGELIO Admin: 06/27/20 13:14 Dose: 25 mls/hr Documented by: TRICE Cosigned by: ADAMS Ketorolac Tromethamine (Ketorolac 60 Mg/2 Ml Vial) 30 mg IV NOW ONE Stop: 06/27/20 12:47 Last Admin: 06/27/20 13:05 Dose: 30 mg Documented by: TRICE Ondansetron HCl (Ondansetron 4 Mg/2 Ml Inj) 4 mg IV NOW ONE Stop: 06/27/20 12:45 Last Admin: 06/27/20 13:05 Dose: 4 mg Documented by: TRICE Potassium Chloride (Potassium Chloride 20 Meq Tab) 40 meq PO NOW ONE Stop: 06/27/20 15:01 Last Admin: 06/27/20 15:37 Dose: 40 meq Documented by: TRICE Vital Signs Vital signs: Vital Signs - 8 hr 06/27/20 11:05 06/27/20 11:18 06/27/20 11:30 Temperature 96.8 F L Pulse Rate 117 H 108 H 102 H Respiratory Rate 18 14 24 Blood Pressure 135/84 131/81 Pulse Oximetry 96 96 95 06/27/20 11:39 06/27/20 12:00 06/27/20 12:30 Temperature Pulse Rate 101 H 103 H 106 H Respiratory Rate 13 19 12 Blood Pressure 126/77 133/83 145/82 H Pulse Oximetry 94 94 97 06/27/20 13:22 06/27/20 13:30 06/27/20 14:00 Temperature Pulse Rate 98 H 101 H 101 H Respiratory Rate 15 13 16 Blood Pressure 146/96 H 145/85 H 141/86 H Pulse Oximetry 96 95 95 06/27/20 14:30 06/27/20 15:00 06/27/20 15:30 Temperature Pulse Rate 96 H 98 H 97 H Respiratory Rate 11 L 19 0 L Blood Pressure 143/94 H 147/88 H 141/83 H Pulse Oximetry 96 96 97 06/27/20 16:00 06/27/20 16:30 06/27/20 17:00 Temperature Pulse Rate 97 H 100 H 97 H Respiratory Rate 14 16 16 Blood Pressure 174/100 H 176/93 H 184/113 H Pulse Oximetry 97 95 96 06/27/20 17:14 Temperature Pulse Rate 95 H Respiratory Rate 18 Blood Pressure 147/87 H Pulse Oximetry 97 <Melissa Ramirez DO - Last Filed: 07/02/20 18:10> Orders Ordered: Discontinued Medications Sodium Chloride (Normal Saline 0.9%) 1,000 mls @ 1,000 mls/hr IV BOLUS ONE Stop: 06/27/20 13:43 Last Infusion: 06/27/20 17:22 Dose: 0 mls/hr Documented by: Admin: 06/27/20 13:13 Dose: 1,000 mls/hr Documented by: TRICE Potassium Chloride 40 meq/ (Sodium Chloride) 520 mls @ 130 mls/hr IV NOW ONE Stop: 06/27/20 16:43 Last Infusion: 06/27/20 17:22 Dose: 0 mls/hr Documented by: TRICE Cosigned by: ESTHER Admin: 06/27/20 13:14 Dose: 130 mls/hr Documented by: TRICE Cosigned by: ADAMS Magnesium Sulfate (Magnesium Sulfate) 2 gm in 50 mls @ 25 mls/hr IV NOW ONE Stop: 06/27/20 14:43 Last Infusion: 06/27/20 15:31 Dose: 0 mls/hr Documented by: TRICE Cosigned by: ROGELIO Admin: 06/27/20 13:14 Dose: 25 mls/hr Documented by: TRICE Cosigned by: ADAMS Ketorolac Tromethamine (Ketorolac 60 Mg/2 Ml Vial) 30 mg IV NOW ONE Stop: 06/27/20 12:47 Last Admin: 06/27/20 13:05 Dose: 30 mg Documented by: TRICE Ondansetron HCl (Ondansetron 4 Mg/2 Ml Inj) 4 mg IV NOW ONE Stop: 06/27/20 12:45 Last Admin: 06/27/20 13:05 Dose: 4 mg Documented by: TRICE Potassium Chloride (Potassium Chloride 20 Meq Tab) 40 meq PO NOW ONE Stop: 06/27/20 15:01 Last Admin: 06/27/20 15:37 Dose: 40 meq Documented by: TRICE Vital Signs Vital signs: Vital Signs - 8 hr 06/27/20 11:05 06/27/20 11:18 06/27/20 11:30 Temperature 96.8 F L Pulse Rate 117 H 108 H 102 H Respiratory Rate 18 14 24 Blood Pressure 135/84 131/81 Pulse Oximetry 96 96 95 06/27/20 11:39 06/27/20 12:00 06/27/20 12:30 Temperature Pulse Rate 101 H 103 H 106 H Respiratory Rate 13 19 12 Blood Pressure 126/77 133/83 145/82 H Pulse Oximetry 94 94 97 06/27/20 13:22 06/27/20 13:30 06/27/20 14:00 Temperature Pulse Rate 98 H 101 H 101 H Respiratory Rate 15 13 16 Blood Pressure 146/96 H 145/85 H 141/86 H Pulse Oximetry 96 95 95 06/27/20 14:30 06/27/20 15:00 06/27/20 15:30 Temperature Pulse Rate 96 H 98 H 97 H Respiratory Rate 11 L 19 0 L Blood Pressure 143/94 H 147/88 H 141/83 H Pulse Oximetry 96 96 97 06/27/20 16:00 06/27/20 16:30 06/27/20 17:00 Temperature Pulse Rate 97 H 100 H 97 H Respiratory Rate 14 16 16 Blood Pressure 174/100 H 176/93 H 184/113 H Pulse Oximetry 97 95 96 06/27/20 17:14 Temperature Pulse Rate 95 H Respiratory Rate 18 Blood Pressure 147/87 H Pulse Oximetry 97 MDM - Recheck/Abnormal Lab/Rx <CLARISA Iniguez- - Last Filed: 06/27/20 18:11> Lab Data Attestation: I reviewed the patient's lab results. Result diagrams: 06/27/20 11:39 06/27/20 11:39 Labs: Lab Results 06/27/20 06/27/20 06/27/20 Range/Units 11:39 11:39 15:24 WBC 11.2 H (4.5-11.0) X10^3/uL RBC 3.95 L (4.0-5.2) X10^6/uL Hgb 14.0 (12.0-16.0) g/dL Hct 40.4 (36-46) % MCV 102.1 H (80-100) fL MCH 35.3 H (26-34) PG MCHC 34.6 (30-36) % RDW 17.0 H (11.6-14.8) % Plt Count 309 (150-400) X10^3/uL Neut % (Auto) 81.3 H (50-75) % Lymph % (Auto) 11.5 L (25-40) % Long % (Auto) 6.0 (3-14) % Eos % (Auto) 0.3 L (2-4) % Baso % (Auto) 0.9 (0-2) % Neut # (Auto) 9100 H (0984-7707) /uL Lymph # (Auto) 1300 (6592-8241) /uL Long # (Auto) 700 (0-900) /uL Eos # (Auto) 0 (0-450) /uL Baso # (Auto) 100 (0-100) /uL Sodium 136 L (137-145) mmol/L Potassium 2.5 L* (3.4-5.1) mmol/L Chloride 93 L (98-107) mmol/L Carbon Dioxide 29 (22-32) mmol/L BUN 5 L (7-17) mg/dL Creatinine 0.54 (0.52-1.04) mg/dL Estimated GFR > 60.0 (>60) mL/min BUN/Creatinine Ratio 9.3 (6-22) Glucose 110 H (70-100) mg/dL Calcium 9.6 (8.4-10.2) mg/dL Magnesium 1.5 L (1.6-2.3) mg/dL Total Bilirubin 0.7 (0.2-1.3) mg/dL AST 119 H (14-36) IU/L ALT 64 H (<35) IU/L Alkaline Phosphatase 139 H (38-126) U/L Total Protein 8.3 H (6.3-8.2) g/dL Albumin 4.4 (3.5-5.0) g/dL Globulin 3.9 (1.7-4.1) g/dL Albumin/Globulin Ratio 1.1 (1.0-2.8) Stl C. cayetanensis PCR Not detected (Not Detect) Stool Rotavirus (PCR) Not detected (Not Detect) Stool Adenovirus (PCR) Not detected (Not Detect) Stool Astrovirus (PCR) Not detected (Not Detect) Stool Cryptosporidium PCR Not detected (Not Detect) Stl E.coli Shiga Tox PCR Not detected (Not Detect) St Sh/Enteroin Ecoli PCR Not detected (Not Detect) Stool E coli O157 PCR Not Reportable Stl Enterotoxigenic E PCR Not detected (Not Detect) Stool EPEC (PCR) Not detected (Not Detect) Stl E. histolytica PCR Not detected (Not Detect) Stool Giardia Lamblia PCR Not detected (Not Detect) Stool Sapovirus (PCR) Not detected (Not Detect) Stl P. shigelloides PCR Not detected (Not Detect) St Y.enterocolitica PCR Not detected (Not Detect) Stool Vibrio (PCR) Not detected (Not Detect) Stl Vibrio cholerae PCR Not detected (Not Detect) Stl Enteroaggr Ecoli PCR Not detected (Not Detect) Stl Norovirus GI/GII PCR Not detected (Not Detect) Campylobacter (PCR) Not detected (Not Detect) C. difficile Tox (PCR) Not detected (Not Detect) Salmonella (PCR) Not detected (Not Detect) Point of Care Testing Test Results Negative Urine Dip Bedside Urine Glucose Negative Bedside Urine Bilirubin - Negative Bedside Urine Ketone - Negative Urine Specific [place] 1.015 Bedside Urine Occult Blood - Negative Bedside Urine pH 6.0 Bedside Urine Protein - Negative Bedside Urine Urobilinogen - Negative Bedside Urine Nitrite - Negative Bedside Urine Leukocytes - Negative Esterase ECG Data Attestation: I personally reviewed and interpreted this ECG as follows: Interpretation: Sinus tachycardia. Ventricular rate 107. P.r. interval 142. QRS 84. Viewed by Dr Ramirez MDM Narrative Medical decision making narrative: The patient is a 45-year-old female current everyday smoker who presents with a chief complaint of hypokalemia from outpatient lab work. Her potassium was 2.5. She was replaced in the emergency department with 40 mEq IV, 2 g Mag IV, 40 mEq p.o.. She was given ondansetron and ketorolac for pain. She is able to tolerate p.o. fluids. I spoke with Dr. Grey, who the patient saw as an outpatient provider, who states that to the emergency department is okay to replace her potassium and discharge. Given the patient's loose stools and diarrhea while she is on clindamycin, GI panel to help rule Clostridium difficile, which results negative. Her potassium was replaced without incident, the patient is able to tolerate p.o. fluids and feels much improved prior to discharge. Dr. Grey states she is sending in a prescription for potassium to the patient's pharmacy. Encouraged to follow up with the next few days and come back to the ER for acute concerns. Patient has no questions or concerns upon discharge and states understanding return precautions as well as follow-up care. <Melissa Ramirez, DO - Last Filed: 07/02/20 18:10> Lab Data Labs: Lab Results 1106/27/20 06/27/20 Range/Units 11:39 11:39 15:24 WBC 11.2 H (4.5-11.0) X10^3/uL RBC 3.95 L (4.0-5.2) X10^6/uL Hgb 14.0 (12.0-16.0) g/dL Hct 40.4 (36-46) % MCV 102.1 H (80-100) fL MCH 35.3 H (26-34) PG MCHC 34.6 (30-36) % RDW 17.0 H (11.6-14.8) % Plt Count 309 (150-400) X10^3/uL Neut % (Auto) 81.3 H (50-75) % Lymph % (Auto) 11.5 L (25-40) % Long % (Auto) 6.0 (3-14) % Eos % (Auto) 0.3 L (2-4) % Baso % (Auto) 0.9 (0-2) % Neut # (Auto) 9100 H (3109-9734) /uL Lymph # (Auto) 1300 (9112-2924) /uL Long # (Auto) 700 (0-900) /uL Eos # (Auto) 0 (0-450) /uL Baso # (Auto) 100 (0-100) /uL Sodium 136 L (137-145) mmol/L Potassium 2.5 L* (3.4-5.1) mmol/L Chloride 93 L (98-107) mmol/L Carbon Dioxide 29 (22-32) mmol/L BUN 5 L (7-17) mg/dL Creatinine 0.54 (0.52-1.04) mg/dL Estimated GFR > 60.0 (>60) mL/min BUN/Creatinine Ratio 9.3 (6-22) Glucose 110 H (70-100) mg/dL Calcium 9.6 (8.4-10.2) mg/dL Magnesium 1.5 L (1.6-2.3) mg/dL Total Bilirubin 0.7 (0.2-1.3) mg/dL AST 119 H (14-36) IU/L ALT 64 H (<35) IU/L Alkaline Phosphatase 139 H (38-126) U/L Total Protein 8.3 H (6.3-8.2) g/dL Albumin 4.4 (3.5-5.0) g/dL Globulin 3.9 (1.7-4.1) g/dL Albumin/Globulin Ratio 1.1 (1.0-2.8) Stl C. cayetanensis PCR Not detected (Not Detect) Stool Rotavirus (PCR) Not detected (Not Detect) Stool Adenovirus (PCR) Not detected (Not Detect) Stool Astrovirus (PCR) Not detected (Not Detect) Stool Cryptosporidium PCR Not detected (Not Detect) Stl E.coli Shiga Tox PCR Not detected (Not Detect) St Sh/Enteroin Ecoli PCR Not detected (Not Detect) Stool E coli O157 PCR Not Reportable Stl Enterotoxigenic E PCR Not detected (Not Detect) Stool EPEC (PCR) Not detected (Not Detect) Stl E. histolytica PCR Not detected (Not Detect) Stool Giardia Lamblia PCR Not detected (Not Detect) Stool Sapovirus (PCR) Not detected (Not Detect) Stl P. shigelloides PCR Not detected (Not Detect) St Y.enterocolitica PCR Not detected (Not Detect) Stool Vibrio (PCR) Not detected (Not Detect) Stl Vibrio cholerae PCR Not detected (Not Detect) Stl Enteroaggr Ecoli PCR Not detected (Not Detect) Stl Norovirus GI/GII PCR Not detected (Not Detect) Campylobacter (PCR) Not detected (Not Detect) C. difficile Tox (PCR) Not detected (Not Detect) Salmonella (PCR) Not detected (Not Detect) Point of Care Testing Test Results Negative Urine Dip Bedside Urine Glucose Negative Bedside Urine Bilirubin - Negative Bedside Urine Ketone - Negative Urine Specific [place] 1.015 Bedside Urine Occult Blood - Negative Bedside Urine pH 6.0 Bedside Urine Protein - Negative Bedside Urine Urobilinogen - Negative Bedside Urine Nitrite - Negative Bedside Urine Leukocytes - Negative Esterase Discharge Plan Departure Patient Disposition: Home Clinical Impression: Acute hypokalemia Instructions: DI for Hypokalemia Activity Restrictions/Additional Instructions: Thank you for trusting us with your care today. Today your potassium was critically low at 2.5. We have given you 40 mEq IV as well as 40 mEq p.o.. This should bring you up to approximately 3.3. Please follow-up with Dr. Grey as we discussed. She sent in a prescription for potassium for you. Please follow-up for re-evaluation and a laboratory recheck. Please come back to the emergency department for any acute concerns. I have also given you contact information the [facility] natural resources manager thank can help you find a primary care provider in the area, in addition to Dr. Grey's excellent care. Prescriptions: No Action ondansetron 4 mg tablet,disintegrating 4 mg PO Q6H PRN (Reason: nausea and vomiting) Qty: 20 RF: 0 omeprazole 40 mg capsule,delayed release(DR/EC) 40 mg PO DAILY Qty: 14 RF: 1 potassium chloride 20 mEq packet 20 meq PO BID Qty: 30 RF: 1 Referrals: [facility] [Outside] Sheila Grey MD [Physician] - <Melissa Ramirez DO - Last Filed: 07/02/20 18:10> Cosign ED Attending Marisaature Attestation: I was immediately available in the department for consultation. Documentation has been reviewed. I agree with assessment and plan.
[2020-06-27] MEDS: POTASSIUM CHLORIDE 20 MEQ TAB 40 MEQ PO (15:37)
[2020-06-27 17:21] LABS: Adenovirus F 40/41 Not Detected (Not Detect); Astrovirus Not Detected (Not Detect); Campylobacter Not Detected (Not Detect); Clostridium difficile toxin AB Not Detected (Not Detect); Cryptosporidium Not Detected (Not Detect); Cyclospora cayetanensis Not Detected (Not Detect); Entamoeba histolytica Not Detected (Not Detect); Enteroaggregative E.coli Not Detected (Not Detect); Enteropathogenic E.coli Not Detected (Not Detect); Enterotoxigenic E.coli It/st Not Detected (Not Detect); Giardia lamblia Not Detected (Not Detect); Norovirus GI/GII Not Detected (Not Detect); Plesiomonsa shigelloides Not Detected (Not Detect); Rotavirus A Not Detected (Not Detect); Salmonella Not Detected (Not Detect); Sapovirus Not Detected (Not Detect); Shiga-like toxin-prod E.coli Not Detected (Not Detect); Shigella/Enteroinvasive E.coli Not Detected (Not Detect); Vibrio Not Detected (Not Detect); Vibrio cholerae Not Detected (Not Detect); Yersinia enterocolitica Not Detected (Not Detect)
== END 2020-06-27 17:25 | disposition home or self-care (01) ==
PROVIDERS: Emergency Medicine; Emergency Provider Nurse Practitioner Family
DX: E87.6 Hypokalemia (principal); R11.2 Nausea with vomiting, unspecified; R00.0 Tachycardia, unspecified
CPT/HCPCS: 36415; 80053; 81003; 81025; 83735; 85025; 87507; 93005; 93010; 96365; 96366; 96375; 99283; 99284; J1885; J2405; J3480